=== PATIENT | male | born 1945 | race Caucasian/White ===

== ENCOUNTER 2017-09-15 15:15 | Inpatient (IN) | payer MEDICARE, OTHER ==
[2017-09-15] VITALS (7 sets, daily range): BP systolic 112–158; BP diastolic 67–81
[~2017-09-15] VITALS: Ht 193 cm; Wt 92.1 kg
--- NOTE | 2017-09-15 15:20 | NUR ---
PT TEMO FROM HOME FOR ABD PAIN. DENIES N/V/D. SEEN BY MD FOR EVAL. VSS. SAFETY AND COMFORT MEASURES PROVIDED. WILL MONITOR.
[2017-09-15] MEDS ORDERED: IV NS 0.9% 500 ML BAG IV ONE (15:30)
[2017-09-15 15:37] LABS: BASOPHILS # (AUTO) 0.7 /CMM (0.0-0.2); EOSINOPHILS # (AUTO) 0.2 /CMM (0.0-0.7); EOSINOPHILS % (AUTO) 0.9 % (0.0-6.0); HEMATOCRIT 38 % (39-51); HEMOGLOBIN 13.2 g/dL (13.5-17.5); LYMPHOCYTES # (AUTO) 0.6 /CMM (0.8-4.8); LYMPHOCYTES % (AUTO) 3.8 % (20.0-44.0); MEAN CORPUSCULAR HEMOGLOBIN 31 PG (26.0-33.0); MEAN CORPUSCULAR HGB CONC 34 g/dl (31.0-36.0); MEAN CORPUSCULAR VOLUME 91 fL (80-96); MONOCYTES # (AUTO) 1.1 /CMM (0.1-1.30); MONOCYTES % (AUTO) 6.3 % (2.0-12.0); NEUTROPHILS # (AUTO) 14.4 /CMM (1.8-8.9); PLATELET COUNT (AUTO) 276 /CMM (150-450); RDW COEFFICIENT OF VARIATION 13.7 (11.5-15.0); RED BLOOD CELL COUNT(AUTO) 4.21 MIL/uL (4.5-6.0)
--- NOTE | 2017-09-15 15:37 | NUR ---
PT TAKEN TO CT.
[2017-09-15 15:45] LABS: INR 3.38 (0.87-1.13); PROTHROMBIN TIME 35.1 SECS (9.5-12.7)
[2017-09-15 15:48] LABS: ALANINE AMINOTRANSFERASE 22 U/L (12-78); ALBUMIN 3.2 g/dL (3.4-5.0); ALKALINE PHOSPHATASE 82 U/L (46-116); ASPARTATE AMINOTRANSFERASE 17 U/L (15-37); BILIRUBIN,DIRECT 0.3 mg/dL (0.0-0.2); BILIRUBIN,TOTAL 1.8 mg/dL (0.2-1.0); CALCIUM, SERUM 8.5 mg/dL (8.5-10.1); CARBON DIOXIDE 23 mmol/L (21-32); CHLORIDE 102 mmol/L (98-107); CREATININE 1.6 mg/dL (0.6-1.3); GLUCOSE 258 mg/dL (74-106); LIPASE 94 U/L (73-393); POTASSIUM 4.3 mmol/L (3.5-5.1); SODIUM SERUM 136 mmol/L (136-145); TOTAL PROTEIN, SERUM 6.5 g/dL (6.4-8.2); UREA NITROGEN, BLOOD 37 mg/dL (7-18)
--- NOTE | 2017-09-15 16:04 | NUR ---
CALLED [facility], ETA OF 1800 WAS GIVEN. TRIP [phone]
[2017-09-15] MEDS ORDERED: TAMS-12 PO (16:09)
[2017-09-15] MEDS ORDERED: BUPR300T54 PO (16:09)
[2017-09-15] MEDS ORDERED: HYDR25TA4 PO (16:09)
[2017-09-15] MEDS ORDERED: BENA40TA2 PO (16:09)
[2017-09-15] MEDS ORDERED: TADA5TAB2 PO (16:09)
[2017-09-15] MEDS ORDERED: ATOR40TA PO (16:09)
[2017-09-15] MEDS ORDERED: WARF4TAB41 PO ×2 (16:09)
[2017-09-15] MEDS ORDERED: GLIP2.5T3 PO (16:09)
[2017-09-15] MEDS ORDERED: ZOLP5TAB7 PO (16:09)
--- NOTE | 2017-09-15 16:22 | NUR ---
CALLED DR PRUITT LEFT VOICEMAIL. [phone]
--- NOTE | 2017-09-15 16:28 | NUR ---
CALLED [employer] PRODUCTION ASSEMBLY OPERATOR WAS PAGED.
--- NOTE | 2017-09-15 16:42 | NUR ---
CALLED [facility] AUTOMATIC CIGAR WRAPPER TENDER WAS REPAGED.
[2017-09-15 16:45] LABS: NEUTROPHILS % (MANUAL) 88 (42-76)
[2017-09-15 16:46] LABS: LYMPHOCYTES % (MANUAL) 3 % (16-48); MONOCYTES % (MANUAL) 9 % (0-11.0)
--- NOTE | 2017-09-15 17:00 | NUR ---
CONSENT SIGNED BY PT FOR FFP TRANSFUSION. TEACHINGS PROVIDED. ALL QUESTIONS ANSWERED.
[2017-09-15] MEDS ORDERED: Z GUARD REMEDY 2 OZ OINT TP PRN (17:30)
[2017-09-15] MEDS ORDERED: HYDROCODONE/APAP 5/325MG 1 EACH TABLET PO PRN (17:30)
[2017-09-15] MEDS ORDERED: MAGNESIUM HYDROXIDE 30 ML UDC PO PRN (17:30)
[2017-09-15] MEDS ORDERED: MAG HYDROX/AL HYDROX/SIMETH 30 ML UDC PO PRN (17:30)
[2017-09-15] MEDS ORDERED: ONDANSETRON HCL/PF 4 MG/2 ML VIAL IVP PRN (17:30)
--- NOTE | 2017-09-15 17:52 | NUR ---
REPORT GIVEN TO LAMIN TRINIDAD FOR ICU ROOM 254.
--- NOTE | 2017-09-15 17:55 | NUR ---
FFP TRANSFUSION STARTED PER PROTOCOL. VSS. NO ADVERSE REACTION/ S/S NOTED. WILL CONTINUE TO MONITOR.
--- NOTE | 2017-09-15 18:25 | NUR ---
RN NOTES PT ARRIVED IN THE UNIT VIA GURNEY. ABLE TO TRANSFER FROM GURNEY TO BED WITH MODERATE ASSISTANCE. PT VERBALIZED LEFT AND RIGHT ABDOMINAL PAIN UPON MOVING. PT IS A/O X3. ON ROOM AIR, WITH NO S/S OF RESP DISTRESS. CURRENTLY SR ON THE MONITOR, HR 90'S. PT IS CONTINENT, ABLE TO USE URINAL, HEMATURIA NOTED, MD NOTIFIED. RIGHT FOREARM 18G HAS 4TH UNIT OF FFP CURRENTLY RUNNING, NO ADVERSE REACTIONS NOTED, IV LINE FLUSHED AND PATENT, NO S/S OF INFILTRATION/INFECTION FROM SITE, DRESSING CDI. BED LOW AND LOCKED, SIDERAILS UP, CALL LIGHT WITHIN REACH. WILL MONITOR.
[2017-09-15] MEDS ORDERED: DEXTROSE 50%-WATER 50 ML DISP.SYRIN IV PRN (19:30)
--- NOTE | 2017-09-15 19:30 | NUR ---
RN NOTES DR CORREA IN THE ROOM TO ASSESS THE PATIENT. MD AWARE OF HEMATURIA, NO NEW ORDERS FOR NOW.
[2017-09-15] MEDS: BLOOD SUGAR DIAGNOSTIC 1 EACH STRIP VI SCH (21:14)
[2017-09-15] MEDS: *INSULIN REGULAR(HUMULIN R)HUM 100 UNIT/ML VIAL SQ PRN (21:15)
[2017-09-15 22:43] LABS: HEMATOCRIT 29 % (39-51); HEMOGLOBIN 9.7 g/dL (13.5-17.5); MEAN CORPUSCULAR HEMOGLOBIN 31 PG (26.0-33.0); MEAN CORPUSCULAR HGB CONC 33 g/dl (31.0-36.0); MEAN CORPUSCULAR VOLUME 91 fL (80-96); PLATELET COUNT (AUTO) 234 /CMM (150-450); WHITE BLOOD COUNT (AUTO) 15.9 K/uL (4.3-11.0)
[2017-09-16] VITALS (25 sets, daily range): BP systolic 82–155; BP diastolic 50–89
[2017-09-16] MEDS: ZOLPIDEM TARTRATE 5 MG TABLET PO PRN ×2 (00:17→21:07)
[2017-09-16 05:11] LABS: HEMATOCRIT 28 % (39-51); HEMOGLOBIN 9.4 g/dL (13.5-17.5); LYMPHOCYTES # (AUTO) 1.2 /CMM (0.8-4.8); LYMPHOCYTES % (AUTO) 7.2 % (20.0-44.0); MEAN CORPUSCULAR HEMOGLOBIN 31 PG (26.0-33.0); MEAN CORPUSCULAR HGB CONC 34 g/dl (31.0-36.0); MEAN CORPUSCULAR VOLUME 92 fL (80-96); MONOCYTES # (AUTO) 1.9 /CMM (0.1-1.30); MONOCYTES % (AUTO) 11.6 % (2.0-12.0); NEUTROPHILS # (AUTO) 13.1 /CMM (1.8-8.9); NEUTROPHILS % (AUTO) 81.2 % (43.0-81.0); PLATELET COUNT (AUTO) 226 /CMM (150-450); RDW COEFFICIENT OF VARIATION 14.4 (11.5-15.0); RED BLOOD CELL COUNT(AUTO) 3.06 MIL/uL (4.5-6.0); WHITE BLOOD COUNT (AUTO) 16.1 K/uL (4.3-11.0)
[2017-09-16 05:30] LABS: CALCIUM, SERUM 8.3 mg/dL (8.5-10.1); CARBON DIOXIDE 25 mmol/L (21-32); CHLORIDE 106 mmol/L (98-107); CREATININE 1.7 mg/dL (0.6-1.3); GLUCOSE 177 mg/dL (74-106); POTASSIUM 4.1 mmol/L (3.5-5.1); SODIUM SERUM 142 mmol/L (136-145); UREA NITROGEN, BLOOD 45 mg/dL (7-18)
[2017-09-16 05:47] LABS: INR 1.64 (0.87-1.13); PROTHROMBIN TIME 17.1 SECS (9.5-12.7)
--- NOTE | 2017-09-16 06:15 | NUR ---
RN CLOSING NOTES PT REMAINS STABLE OF THE MOMENT. ALL DUE MEDS GIVEN, AM CARE PROVIDED. WILL ENDORSE CONTINUITY OF CARE TO AM RN
--- NOTE | 2017-09-16 07:30 | NUR ---
GENERAL DISTILLERY WORKER RECEIVED PATIENT ASLEEP, LYING ON BED EASY TO WAKE UP AFEBRILE ALERT X 3 NO COMPLAINTS OF PAIN AT THE MOMENT PLACED ON HIS COMFORTABLE POSITION HAS TEA COLORED URINE, ABLE TO USE URINAL MILD WEAKNES OF HIS LOWER EXTREMITIES
[2017-09-16] MEDS: BLOOD SUGAR DIAGNOSTIC 1 EACH STRIP VI SCH ×4 (07:39→21:06)
--- NOTE | 2017-09-16 08:00 | NUR ---
SLEEVE MAKER SEEN AND EXAMINED BY DR. CISSE WITH NEW ORDERS MADE AND CARRIED OUT MONITORED CLOSELY
[2017-09-16] MEDS: INSULIN REGULAR, HUMAN 100 UNIT/ML 3 ML VIAL SQ PRN ×3 (08:07→17:24)
[2017-09-16] MEDS ORDERED: IV NS 0.9% 1,000 ML IV SCH (09:00)
[2017-09-16] MEDS ORDERED: PANTOPRAZOLE 40 MG VIAL IV SCH (09:00)
[2017-09-16] MEDS: PANTOPRAZOLE 40 MG VIAL IV SCH ×2 (09:08→21:07)
[2017-09-16] MEDS: TAMSULOSIN 0.4 MG CAP.SR.24H PO SCH (09:08)
[2017-09-16] MEDS: BUPROPION XL 150 MG TAB.ER.24 PO SCH (09:08)
[2017-09-16 09:10] LABS: TROPONIN I 0.027 ng/mL (0.00-0.056)
[2017-09-16 09:43] LABS: THYROID STIMULATING HORMONE 0.264 uIU/mL (0.358-3.74)
[2017-09-16 09:47] LABS: BILIRUBIN,DIRECT 0.2 mg/dL (0.0-0.2); BILIRUBIN,TOTAL 1.6 mg/dL (0.2-1.0); TOTAL PROTEIN, SERUM 6.1 g/dL (6.4-8.2)
--- NOTE | 2017-09-16 10:00 | NUR ---
MACHINE FILLER SHREDDER SEEN AND EXAMINED BY DR. BOWLES AND DR. ROOT WITH NEW ORDERS MADE AND CARRIED OUT CREATININE IS ELEVATED INFORMED DR. CISSE ABOUT THE RESULT, PATIENT IS ON IV FLUID THERAPY WILL CONTINUE FLUID THERAPY SEE RESULT OF CREATININE, WILL PUSH THROUGH WITH THE PROCEDURE, DR. CISSE INFORMED RADIOLOGY DEPT
[2017-09-16] MEDS: IV D5/ 0.9% NACL 1,000 ML IV PRN ×3 (10:30→21:07)
[2017-09-16] MEDS ORDERED: CT SWABBABLE VALVE TRANS SET 1 EA INFUS.SET MC ONE (12:01)
[2017-09-16] MEDS ORDERED: IOHEXOL-350 100 ML VIAL IV ONE (12:01)
[2017-09-16] MEDS: PIPERACILLIN /TAZOBACTAM 3.375 G in IV D5W 50 ML IV SCH ×3 (12:40→23:13)
--- NOTE | 2017-09-16 12:40 | NUR ---
UROLOGIST MD CTA ABDOMEN AND PELVIS DONE AWAITING RESULT
[2017-09-16 15:11] LABS: APPEARANCE,URINE CLEAR (CLEAR); BILIRUBIN,URINE NEGATIVE (NEGATIVE); BLOOD, URINE 3+ Ery/uL (NEGATIVE); COLOR,URINE RED (YELLOW); KETONES,URINE NEGATIVE (NEGATIVE); LEUKOCYTE ESTERASE ,URINE TRACE (NEGATIVE); NITRITE, URINE POSITIVE (NEGATIVE); PROTEIN,URINE 2+ mg/dl (NEGATIVE); UGLUCOSE NEGATIVE (NEGATIVE); UROBILINOGEN,URINE 0.2 EU/dL (0.2)
[2017-09-16 15:41] LABS: CREATININE, URINE 99.9 MG/DL (30.0-125.0); URINE TOTAL PROTEIN 69.3 mg/dL (0-11.9)
[2017-09-16 15:54] LABS: BACTERIA,URINE 1+ /HPF (None Seen); RBC,URINE TOO NUMEROUS TO COUN /HPF (0-2); SQUAMOUS EPITHELIAL CELL,UR 0-2 /HPF (None Seen)
[2017-09-16 17:26] LABS: EOSINOPHIL,URINE None Seen
--- NOTE | 2017-09-16 18:36 | NUR ---
CLASSROOM INSTRUCTIONAL AIDE SEEN AND EXAMINED BY DR. BOWLES WITH NEW ORDERED MADE AND CARRIED OUT NO UNTOWARDS SYMPTOM SEEN ENDORSED TO NOD
--- NOTE | 2017-09-16 19:30 | NUR ---
RN INITIAL NOTES RECEIVED THE PATIENT AWAKE ON BED, A/OX 3. ON ROOM AIR SATURATING WELL, NO S/S OF RESP DISTRESS. CURRENTLY SR ON THE MONITOR, HR 80-90'S. DENIES ANY PAIN OF THE MOMENT. PT IS CONTINENT AND USES THE URINAL. RIGHT FOREARM 18G HAS D5NS@ 100MLS/HR, FLUSHED AND PATENT, NO S/S OF INFILTRATION/INFECTION, DRESSING CDI. BED LOW AND LOCKED, SIDERAILS UP, CALL LIGHT WITHIN REACH. WILL MONITOR
[2017-09-16 19:44] LABS: HEMATOCRIT 25 % (39-51); MEAN CORPUSCULAR HEMOGLOBIN 30 PG (26.0-33.0); MEAN CORPUSCULAR HGB CONC 33 g/dl (31.0-36.0); MEAN CORPUSCULAR VOLUME 93 fL (80-96); PLATELET COUNT (AUTO) 193 /CMM (150-450); RED BLOOD CELL COUNT(AUTO) 2.64 MIL/uL (4.5-6.0); WHITE BLOOD COUNT (AUTO) 13.6 K/uL (4.3-11.0)
[2017-09-16] MEDS: ACETAMINOPHEN 325 MG TABLET PO PRN (21:07)
[2017-09-16] MEDS: *INSULIN REGULAR(HUMULIN R)HUM 100 UNIT/ML VIAL SQ PRN (21:08)
[2017-09-17] VITALS (23 sets, daily range): BP systolic 96–156; BP diastolic 48–73
[2017-09-17 04:48] LABS: BASOPHILS % (AUTO) 0.2 % (0.0-2.0); EOSINOPHILS % (AUTO) 0.2 % (0.0-6.0); HEMATOCRIT 22 % (39-51); HEMOGLOBIN 7.2 g/dL (13.5-17.5); LYMPHOCYTES # (AUTO) 1.3 /CMM (0.8-4.8); MEAN CORPUSCULAR HEMOGLOBIN 30 PG (26.0-33.0); MEAN CORPUSCULAR HGB CONC 33 g/dl (31.0-36.0); MEAN CORPUSCULAR VOLUME 93 fL (80-96); MONOCYTES # (AUTO) 1.8 /CMM (0.1-1.30); MONOCYTES % (AUTO) 14.6 % (2.0-12.0); PLATELET COUNT (AUTO) 157 /CMM (150-450); RDW COEFFICIENT OF VARIATION 14.8 (11.5-15.0); RED BLOOD CELL COUNT(AUTO) 2.37 MIL/uL (4.5-6.0); WHITE BLOOD COUNT (AUTO) 12.2 K/uL (4.3-11.0)
[2017-09-17 05:06] LABS: ALANINE AMINOTRANSFERASE 19 U/L (12-78); ALBUMIN 2.5 g/dL (3.4-5.0); ALKALINE PHOSPHATASE 58 U/L (46-116); ASPARTATE AMINOTRANSFERASE 12 U/L (15-37); BILIRUBIN,TOTAL 1.5 mg/dL (0.2-1.0); CALCIUM, SERUM 8.1 mg/dL (8.5-10.1); CARBON DIOXIDE 27 mmol/L (21-32); CHLORIDE 108 mmol/L (98-107); CREATININE 1.5 mg/dL (0.6-1.3); GLUCOSE 146 mg/dL (74-106); POTASSIUM 3.7 mmol/L (3.5-5.1); SODIUM SERUM 144 mmol/L (136-145); TOTAL PROTEIN, SERUM 5.6 g/dL (6.4-8.2); UREA NITROGEN, BLOOD 42 mg/dL (7-18)
[2017-09-17] MEDS: IV D5/ 0.9% NACL 1,000 ML IV PRN (05:13)
[2017-09-17] MEDS: PIPERACILLIN /TAZOBACTAM 3.375 G in IV D5W 50 ML IV SCH ×4 (05:13→23:48)
--- NOTE | 2017-09-17 06:10 | NUR ---
RN NOTES NOTIFIED DR JEFFERY THAT PT HGB 7.2 AND HCT 22, NO ACTIVE BLEEDING, VITALS STABLE. PER MD, NO NEW ORDERS.
--- NOTE | 2017-09-17 06:30 | NUR ---
RN CLOSING NOTES PT REMAINS STABLE OF THE MOMENT. ALL DUE MEDS GIVEN, NEEDS MET. WILL ENDORSE CONTINUITY OF CARE TO AM RN
[2017-09-17] MEDS: BLOOD SUGAR DIAGNOSTIC 1 EACH STRIP VI SCH ×4 (07:23→21:01)
[2017-09-17] MEDS: INSULIN REGULAR, HUMAN 100 UNIT/ML 3 ML VIAL SQ PRN ×3 (07:26→21:03)
--- NOTE | 2017-09-17 07:30 | NUR ---
POTABLE WATER TREATMENT OPERATOR RECEIVED PATIENT AWAKE, LYING ON BED WITH ONGOING IVF NO COMPLAINTS AT THE MOMENT AFEBRILE ABLE TO MOVE ON BED WITH ASSIST VOIDNG FREELY USING URINAL MONITORED CLOSELY
[2017-09-17] MEDS: PANTOPRAZOLE 40 MG VIAL IV SCH ×2 (08:47→21:01)
[2017-09-17] MEDS: BUPROPION XL 150 MG TAB.ER.24 PO SCH (08:47)
[2017-09-17] MEDS: TAMSULOSIN 0.4 MG CAP.SR.24H PO SCH (08:47)
[2017-09-17] MEDS: ACETAMINOPHEN 325 MG TABLET PO PRN ×2 (08:48→13:15)
--- NOTE | 2017-09-17 10:41 | NUR ---
SEAM SEWER SEEN AND EXAMINED BY DR. CORREA AND DR. BOWLES WITH NEW ORDERS MADE AND CARRIED OUT
[2017-09-17 11:03] LABS: INR 1.57 (0.87-1.13); PROTHROMBIN TIME 16.4 SECS (9.5-12.7)
[2017-09-17] MEDS: SOD FERRIC GLUC 125 MG in IV NS 0.9% 100 ML IV SCH (13:36)
[2017-09-17] MEDS: ZOLPIDEM TARTRATE 5 MG TABLET PO PRN (21:01)
--- NOTE | 2017-09-17 21:30 | NUR ---
MEDTRONICS TECHNICIAN DF PT ACCU CHECK OF 152 PT COVERED WITH 2 UNITS REGULAR INSULIN SQ. PT REQUESTED AMBIEN 5MG PO C/O DIFFICULTY SLEEPING WHILE HOSPITALIZED. PT WITH TRANSFER ORDERS TO TELEMETRY UNIT. PT WILL BE TRANSFERRED TO ROOM#102. PT A/KEVIN4,VSS, NAD NOTED. PT ADMITTED ON 09/15 WITH EXTRAPERITONEAL HEMATOMA. PT DENIES PAIN TO SITE. PT STATE"IT,S GETTING MUCH BETTER AND HAS DECREASED IN SIZE" PT HAD 2 CT OF ABM/PELVIS, PT SEEN BY SURGICAL MD NO NEED FOR SURGICAL INTERVENTION AT THIS TIME. Addendum: 09/17/17 at 2232 by SOSA MCDONALD RN PT TRANSFERRED TO TELE ROOM 102. REPORT PROVIDED TO
--- NOTE | 2017-09-17 22:11 | NUR ---
TELE-1/FURNITURE DETAILER RECEIVED PT BY BED IN ROOM 102 ACCOMPANIED BY ICU STAFF. PT PLACED ON MONITOR. PT EDUCATED TO CALL LIGHT USE AND ROOM ORIENTATION. WILL CONTINUE TO MONITOR.
[2017-09-18] VITALS (18 sets, daily range): BP systolic 103–137; BP diastolic 56–68
[2017-09-18] MEDS: PIPERACILLIN /TAZOBACTAM 3.375 G in IV D5W 50 ML IV SCH ×4 (05:32→23:17)
[2017-09-18 06:33] LABS: BASOPHILS % (AUTO) 0.2 % (0.0-2.0); EOSINOPHILS # (AUTO) 0.1 /CMM (0.0-0.7); EOSINOPHILS % (AUTO) 0.9 % (0.0-6.0); HEMATOCRIT 22 % (39-51); HEMOGLOBIN 7.1 g/dL (13.5-17.5); LYMPHOCYTES # (AUTO) 1.4 /CMM (0.8-4.8); LYMPHOCYTES % (AUTO) 13.3 % (20.0-44.0); MEAN CORPUSCULAR HEMOGLOBIN 31 PG (26.0-33.0); MEAN CORPUSCULAR HGB CONC 33 g/dl (31.0-36.0); MEAN CORPUSCULAR VOLUME 93 fL (80-96); MONOCYTES # (AUTO) 1.3 /CMM (0.1-1.30); MONOCYTES % (AUTO) 12.7 % (2.0-12.0); NEUTROPHILS # (AUTO) 7.7 /CMM (1.8-8.9); NEUTROPHILS % (AUTO) 72.9 % (43.0-81.0); PLATELET COUNT (AUTO) 172 /CMM (150-450); RDW COEFFICIENT OF VARIATION 14.7 (11.5-15.0); RED BLOOD CELL COUNT(AUTO) 2.33 MIL/uL (4.5-6.0); WHITE BLOOD COUNT (AUTO) 10.6 K/uL (4.3-11.0)
[2017-09-18 06:48] LABS: INR 1.29 (0.87-1.13); PROTHROMBIN TIME 13.4 SECS (9.5-12.7)
[2017-09-18 06:59] LABS: ALANINE AMINOTRANSFERASE 19 U/L (12-78); ALBUMIN 2.3 g/dL (3.4-5.0); ALKALINE PHOSPHATASE 57 U/L (46-116); ASPARTATE AMINOTRANSFERASE 11 U/L (15-37); BILIRUBIN,TOTAL 1.5 mg/dL (0.2-1.0); CARBON DIOXIDE 28 mmol/L (21-32); CHLORIDE 110 mmol/L (98-107); CREATININE 1.2 mg/dL (0.6-1.3); GLUCOSE 127 mg/dL (74-106); MAGNESIUM 2.1 mg/dL (1.8-2.4); PHOSPHORUS 3.2 mg/dL (2.5-4.9); POTASSIUM 3.8 mmol/L (3.5-5.1); SODIUM SERUM 145 mmol/L (136-145); TOTAL PROTEIN, SERUM 5.6 g/dL (6.4-8.2); UREA NITROGEN, BLOOD 28 mg/dL (7-18)
--- NOTE | 2017-09-18 07:14 | NUR ---
RN NOTES RECEIVED PT FROM PLASTER FORM MAKER IN STABLE CONDITION A&0X3 ON ROOM AIR RESTING IN BED. SR ON THE TELE MONITOR HR 78. RAC 20G IV SITE DRY AND INTACT NO IVF. BED LOCKED AND IN LOWEST POSITION, CALL LIGHT WITHIN REACH, SIDE RAILS UPX3, WILL CONT TO MONITOR.
[2017-09-18] MEDS: TAMSULOSIN 0.4 MG CAP.SR.24H PO SCH (08:18)
[2017-09-18] MEDS: BLOOD SUGAR DIAGNOSTIC 1 EACH STRIP VI SCH ×4 (08:18→21:34)
[2017-09-18] MEDS: PANTOPRAZOLE 40 MG VIAL IV SCH ×2 (08:18→21:34)
[2017-09-18] MEDS: BUPROPION XL 150 MG TAB.ER.24 PO SCH (08:18)
[2017-09-18] MEDS: INSULIN REGULAR, HUMAN 100 UNIT/ML 3 ML VIAL SQ PRN ×3 (08:20→17:17)
[2017-09-18] MEDS: ACETAMINOPHEN 325 MG TABLET PO PRN ×2 (08:29→17:24)
[2017-09-18] MEDS ORDERED: ENOXAPARIN SODIUM 100 MG/ML DISP.SYRIN SQ SCH (10:00)
[2017-09-18 10:31] LABS: EOSINOPHILS # (AUTO) 0.2 /CMM (0.0-0.7); EOSINOPHILS % (AUTO) 2.3 % (0.0-6.0); HEMATOCRIT 21 % (39-51); LYMPHOCYTES # (AUTO) 1.6 /CMM (0.8-4.8); LYMPHOCYTES % (AUTO) 17.5 % (20.0-44.0); MEAN CORPUSCULAR HEMOGLOBIN 30 PG (26.0-33.0); MEAN CORPUSCULAR HGB CONC 33 g/dl (31.0-36.0); MEAN CORPUSCULAR VOLUME 93 fL (80-96); MONOCYTES # (AUTO) 0.9 /CMM (0.1-1.30); MONOCYTES % (AUTO) 9.7 % (2.0-12.0); NEUTROPHILS # (AUTO) 6.4 /CMM (1.8-8.9); NEUTROPHILS % (AUTO) 70.5 % (43.0-81.0); PLATELET COUNT (AUTO) 184 /CMM (150-450); RDW COEFFICIENT OF VARIATION 14.2 (11.5-15.0); RED BLOOD CELL COUNT(AUTO) 2.24 MIL/uL (4.5-6.0); WHITE BLOOD COUNT (AUTO) 9.1 K/uL (4.3-11.0)
[2017-09-18 10:39] LABS: HEMOGLOBIN 6.8 g/dL (13.5-17.5)
[2017-09-18 12:14] LABS: LYMPHOCYTES % (MANUAL) 13 % (16-48); NEUTROPHILS % (MANUAL) 78 (42-76)
[2017-09-18 12:15] LABS: REACTIVE LYMPHOCYTES 9 % (0-0)
[2017-09-18] MEDS: SOD FERRIC GLUC 125 MG in IV NS 0.9% 100 ML IV SCH (13:18)
[2017-09-18] MEDS ORDERED: WARFARIN SODIUM 5 MG TABLET PO SCH (17:00)
--- NOTE | 2017-09-18 18:23 | NUR ---
RN NOTES PT REMAINED IN STABLE CONDITION THROUGHOUT THE SHIFT, CURRENTLY TRANSFUSING 1 UNIT OF BLOOD, PT TOLERATING WELL NO DISTRESS OR FEVERS NOTED, VITALS REMAINED STABLE. MD RESTARTED ON COUMADIN AND LOVENOX, DR CORREA AWARE OF COAG LEVELS. ALL NEEDS MET, NO SIGNIFICANT CHANGES THROUGHOUT THE SHIFT. CALL LIGHT WITHIN REACH, SIDE RAILS UPX3, WILL ENDORSE TO ONCOMING SHIFT.
--- NOTE | 2017-09-18 19:30 | NUR ---
TEL RN INITIAL NOTES RECEIVED PT FROM DAY SHIFT, IN STABLE CONDITION. ONE UNIT OF BLOOD WAS TRANSFUSED, SECOND TO BE GIVE. NO SIGNS OF SOB OR DISTRESS. BREATHING EVENLY AND UNLABORED. DENIES PAIN. SR 78 ON MONITOR. IV ACCESS IS INTACT AND PATENT. BED IS IN LOW AND LOCKED POSITION, CALL LIGHT WITHIN REACH. WILL CONTINUE TO MONITOR PT
--- NOTE | 2017-09-18 19:50 | NUR ---
CLOTH GRADER SUPERVISOR NOTES PER PHYSICAL THERAPY, PT ONLY OUT OF BED WITH ASSISTANCE
[2017-09-18] MEDS: ENOXAPARIN SODIUM 100 MG/ML DISP.SYRIN SQ SCH (21:34)
[2017-09-18] MEDS: ZOLPIDEM TARTRATE 5 MG TABLET PO PRN (22:26)
[2017-09-19] VITALS: BP 118/59
[2017-09-19 04:00] VITALS: BP 121/56
[2017-09-19] MEDS: PIPERACILLIN /TAZOBACTAM 3.375 G in IV D5W 50 ML IV SCH (05:03)
[2017-09-19] MEDS: BLOOD SUGAR DIAGNOSTIC 1 EACH STRIP VI SCH ×4 (06:06→21:45)
--- NOTE | 2017-09-19 06:12 | NUR ---
PROVIDER NETWORK ANALYST NOTES \ NO INSULIN TO BE GIVEN. BS AT 133. PT STATED THAT HE IS NOT FEELING VERY HUNGRY AND DOESN'T BELIEVE HE WILL BE EATING MUCH BREAKFAST
--- NOTE | 2017-09-19 06:22 | NUR ---
MIDDLE SCHOOL HUMANITIES TEACHER CLOSING NOTES PT REMAINED STABLE THROUGHOUT THE SHIFT. NO SIGNS OF SOB OR DISTRESS. IV ACCESS INTACT AND PATENT. BED IS IN LOW AND LOCKED POSITION, CALL LIGHT WITHIN REACH. WILL ENDORSE TO DAYSHIFT
[2017-09-19 07:01] LABS: INR 1.13 (0.87-1.13); PROTHROMBIN TIME 11.8 SECS (9.5-12.7)
[2017-09-19 07:05] LABS: ALANINE AMINOTRANSFERASE 18 U/L (12-78); ALBUMIN 2.3 g/dL (3.4-5.0); ALKALINE PHOSPHATASE 54 U/L (46-116); ASPARTATE AMINOTRANSFERASE 15 U/L (15-37); BILIRUBIN,TOTAL 2.5 mg/dL (0.2-1.0); CALCIUM, SERUM 8.2 mg/dL (8.5-10.1); CARBON DIOXIDE 27 mmol/L (21-32); CHLORIDE 110 mmol/L (98-107); GLUCOSE 135 mg/dL (74-106); PHOSPHORUS 3.1 mg/dL (2.5-4.9); POTASSIUM 3.8 mmol/L (3.5-5.1); SODIUM SERUM 143 mmol/L (136-145); TOTAL PROTEIN, SERUM 5.6 g/dL (6.4-8.2); UREA NITROGEN, BLOOD 21 mg/dL (7-18)
--- NOTE | 2017-09-19 07:12 | NUR ---
RN NOTES RECEIVED PT FROM VENDING TECHNICIAN IN STABLE CONDITION RESTING IN BED. A&0X3, ON ROOM AIR NO SOB OR DISTRESS NOTED. SR ON THE TELE MONITOR HR 69.R HAND 20G IV SITE DRY AND INTACT NO IVF RUNNING. BED LOCKED AND IN LOWEST POSITION, CALL LIGHT WITHIN REACH, SIDE RAILS UPX3, WILL CONT TO MONITOR.
[2017-09-19 07:43] LABS: BASOPHILS % (AUTO) 0.2 % (0.0-2.0); EOSINOPHILS # (AUTO) 0.2 /CMM (0.0-0.7); EOSINOPHILS % (AUTO) 2.8 % (0.0-6.0); HEMATOCRIT 25 % (39-51); HEMOGLOBIN 8.5 g/dL (13.5-17.5); LYMPHOCYTES # (AUTO) 1.6 /CMM (0.8-4.8); LYMPHOCYTES % (AUTO) 18.3 % (20.0-44.0); MEAN CORPUSCULAR HEMOGLOBIN 31 PG (26.0-33.0); MEAN CORPUSCULAR HGB CONC 34 g/dl (31.0-36.0); MEAN CORPUSCULAR VOLUME 92 fL (80-96); MONOCYTES % (AUTO) 11.6 % (2.0-12.0); NEUTROPHILS % (AUTO) 67.1 % (43.0-81.0); PLATELET COUNT (AUTO) 200 /CMM (150-450); RDW COEFFICIENT OF VARIATION 14.2 (11.5-15.0); RED BLOOD CELL COUNT(AUTO) 2.73 MIL/uL (4.5-6.0); WHITE BLOOD COUNT (AUTO) 8.8 K/uL (4.3-11.0)
[2017-09-19 08:00] VITALS: BP 125/69
[2017-09-19] MEDS: PANTOPRAZOLE 40 MG VIAL IV SCH ×2 (08:12→21:45)
[2017-09-19] MEDS: BUPROPION XL 150 MG TAB.ER.24 PO SCH (08:12)
[2017-09-19] MEDS: TAMSULOSIN 0.4 MG CAP.SR.24H PO SCH (08:12)
[2017-09-19] MEDS: ENOXAPARIN SODIUM 100 MG/ML DISP.SYRIN SQ SCH ×2 (08:14→21:49)
[2017-09-19] MEDS: INSULIN REGULAR, HUMAN 100 UNIT/ML 3 ML VIAL SQ PRN ×2 (12:01→21:47)
[2017-09-19] MEDS: SOD FERRIC GLUC 125 MG in IV NS 0.9% 100 ML IV SCH (13:55)
[2017-09-19 16:00] VITALS: BP 131/59
[2017-09-19] MEDS: WARFARIN SODIUM 2 MG TABLET PO SCH (16:08)
--- NOTE | 2017-09-19 18:06 | NUR ---
RN NOTES PT REMAINED IN STABLE CONDITION THROUGHOUT THE SHIFT, PTS AT BEDSIDE. NO SIGNIFICANT CHANGES THROUGHOUT THE SHIFT. ALL NEEDS MET, NO COMPLAINTS OF PAIN. BED LOCKED AND IN LOWEST POSITION, CALL LIGHT WITHIN REACH WILL ENDORSE TO ONCOMING SHIFT.
[2017-09-19] MEDS: ACETAMINOPHEN 325 MG TABLET PO PRN (18:23)
--- NOTE | 2017-09-19 19:05 | NUR ---
RN OPENING NOTES PATIENT A/A/O X4, ABLE TO MAKE NEEDS KNOWN. BREATHING EVEN & UNLABORED, ON ROOM AIR. DENIES SOB OR DIFFICULTY BREATHING. PULSES PRESENT. RIGHT HAND IV #20 INTACT & PATENT W/ DRESSING CDI, SALINE LOCKED. DENIES ANY PAIN OR DISCOMFORT @ THIS TIME. SAFETY MEASURES IN PLACE W/ SIDE RAILS UP, BED LOCKED & IN LOWEST POSITION & CALL LIGHT WITHIN REACH. WILL CONTINUE TO MONITOR.
[2017-09-19 20:00] VITALS: BP 121/73
[2017-09-19] MEDS: ZOLPIDEM TARTRATE 5 MG TABLET PO PRN (21:49)
[2017-09-20 04:00] VITALS: BP_SYST 112; BP_SYST 142; BP_DIAS 80
[2017-09-20 06:48] LABS: BASOPHILS % (AUTO) 0.3 % (0.0-2.0); EOSINOPHILS # (AUTO) 0.2 /CMM (0.0-0.7); EOSINOPHILS % (AUTO) 2.2 % (0.0-6.0); HEMATOCRIT 27 % (39-51); HEMOGLOBIN 9.1 g/dL (13.5-17.5); LYMPHOCYTES # (AUTO) 1.4 /CMM (0.8-4.8); LYMPHOCYTES % (AUTO) 15.4 % (20.0-44.0); MEAN CORPUSCULAR HEMOGLOBIN 31 PG (26.0-33.0); MEAN CORPUSCULAR HGB CONC 34 g/dl (31.0-36.0); MEAN CORPUSCULAR VOLUME 92 fL (80-96); NEUTROPHILS # (AUTO) 6.3 /CMM (1.8-8.9); NEUTROPHILS % (AUTO) 71.1 % (43.0-81.0); PLATELET COUNT (AUTO) 238 /CMM (150-450); RDW COEFFICIENT OF VARIATION 14.4 (11.5-15.0); WHITE BLOOD COUNT (AUTO) 8.9 K/uL (4.3-11.0)
--- NOTE | 2017-09-20 07:05 | NUR ---
RN NOTES RECEIVED PT ON BED, A/Ox4, RESPIRATION EVEN AND UNLABORED, ON RA , KELLI ANY DISTRESS ,PULSES PRESENT. R HAND IV #20 SITE CDI, DENIES ANY PAIN OR DISCOMFORT @ THIS TIME. SR UP x3, CALL LIGHT WITHIN EASY REACH, SAFETY MEASURES IN PLACE, BED LOCKED & IN LOWEST POSITION ,WILL CONTINUE TO MONITOR CLOSELY.
[2017-09-20 08:00] VITALS: BP 136/78
[2017-09-20 08:04] LABS: INR 1.32 (0.87-1.13); PROTHROMBIN TIME 13.8 SECS (9.5-12.7)
[2017-09-20] MEDS: BLOOD SUGAR DIAGNOSTIC 1 EACH STRIP VI SCH ×4 (08:17→21:11)
[2017-09-20] MEDS: PANTOPRAZOLE 40 MG VIAL IV SCH ×2 (08:18→21:00)
[2017-09-20] MEDS: ENOXAPARIN SODIUM 100 MG/ML DISP.SYRIN SQ SCH ×2 (08:19→21:10)
[2017-09-20] MEDS: TAMSULOSIN 0.4 MG CAP.SR.24H PO SCH (08:19)
[2017-09-20] MEDS: BUPROPION XL 150 MG TAB.ER.24 PO SCH (08:19)
--- NOTE | 2017-09-20 11:00 | NUR ---
RN NOTES PT KELLI ANY DISTRESS , OOB TO BR , SUPPORTIVE FAMILY AT THE BEDSIDE, CONTINUE TO MONITOR.
[2017-09-20] MEDS: INSULIN REGULAR, HUMAN 100 UNIT/ML 3 ML VIAL SQ PRN (11:32)
[2017-09-20] MEDS: ACETAMINOPHEN 325 MG TABLET PO PRN ×2 (11:41→20:58)
[2017-09-20] MEDS: SOD FERRIC GLUC 125 MG in IV NS 0.9% 100 ML IV SCH (14:04)
[2017-09-20 16:00] VITALS: BP 142/74
[2017-09-20] MEDS: WARFARIN SODIUM 2 MG TABLET PO SCH (16:52)
--- NOTE | 2017-09-20 18:35 | NUR ---
RN NOTES PT RESTING WELL, RESPIRATION EVEN AND UNLABORED, NO DISTRESS NOTED, R HAND IV SITE CDI, WILL ENDORSE TO FOOD ORDER DELIVERY RUNNER NURSE FOR JONATHAN .
--- NOTE | 2017-09-20 19:55 | NUR ---
RN OPENING NOTES RECEIVED REPORT FROM DAYSHIFT RN. FOUND Pt RESTING IN BED, READY TO GO TO SLEEP. NO S/S OF ACUTE DISTRESS OR SOB NOTED. RESPIRATION EVEN AND UNLABORED. Pt IS A/OX4, VERBAL ABLE TO MAKE NEEDS KNOWN. IV ON RHAND #20G, SL. SAFETY MEASURES IN PLACE. BED LOW, LOCKED, HOB ELEVATED, SIDE RAILS UP, CALL LIGHT AND BEDSIDE TABLE WITHIN REACH. WILL CONTINUE TO MONITOR Pt THROUGHOUT THE NIGHT FOR SAFETY. PROBABLE DC IN THE AM WITH HOME HEALTH.
[2017-09-20 20:13] VITALS: BP 131/75
[2017-09-20] MEDS: ZOLPIDEM TARTRATE 5 MG TABLET PO PRN (21:11)
--- NOTE | 2017-09-20 22:00 | NUR ---
HS BLOOD GLUCOSE CHECK: 126. NO INSULIN COVERAGE NEEDED AT THIS TIME.
[2017-09-21 01:39] VITALS: BP 131/75
[2017-09-21 04:00] VITALS: BP 133/75
[2017-09-21 04:27] VITALS: BP 133/75
[2017-09-21 06:32] LABS: INR 1.81 (0.87-1.13); PROTHROMBIN TIME 18.9 SECS (9.5-12.7)
--- NOTE | 2017-09-21 06:35 | NUR ---
AC BLOOD GLUCOSE CHECK 124. NO INSULIN COVERAGE NEEDED AT THIS TIME.
[2017-09-21 06:36] LABS: BASOPHILS % (AUTO) 0.1 % (0.0-2.0); EOSINOPHILS # (AUTO) 0.1 /CMM (0.0-0.7); EOSINOPHILS % (AUTO) 1.3 % (0.0-6.0); HEMATOCRIT 29 % (39-51); HEMOGLOBIN 9.7 g/dL (13.5-17.5); LYMPHOCYTES # (AUTO) 1.1 /CMM (0.8-4.8); LYMPHOCYTES % (AUTO) 10.8 % (20.0-44.0); MEAN CORPUSCULAR HEMOGLOBIN 31 PG (26.0-33.0); MEAN CORPUSCULAR HGB CONC 34 g/dl (31.0-36.0); MEAN CORPUSCULAR VOLUME 93 fL (80-96); MONOCYTES # (AUTO) 1.1 /CMM (0.1-1.30); MONOCYTES % (AUTO) 11.1 % (2.0-12.0); NEUTROPHILS # (AUTO) 7.7 /CMM (1.8-8.9); NEUTROPHILS % (AUTO) 76.7 % (43.0-81.0); PLATELET COUNT (AUTO) 266 /CMM (150-450); RDW COEFFICIENT OF VARIATION 14.9 (11.5-15.0); RED BLOOD CELL COUNT(AUTO) 3.09 MIL/uL (4.5-6.0); WHITE BLOOD COUNT (AUTO) 10.1 K/uL (4.3-11.0)
--- NOTE | 2017-09-21 06:50 | NUR ---
RN CLOSING NOTES NO SIGNIFICANT CHANGES IN Pt's CONDITION. NO S/S OF ACUTE DISTRESS OR SOB NOTED DURING THE NIGHT. ALL NEEDS MET AND ATTENDED TO. SAFETY MEASURES IN PLACE. WILL ENDORSE TO DAYSHIFT RN FOR Pt's JONATHAN.
[2017-09-21] MEDS: BLOOD SUGAR DIAGNOSTIC 1 EACH STRIP VI SCH ×2 (06:58→12:00)
--- NOTE | 2017-09-21 07:12 | NUR ---
RN INITIAL NOTES: REC'D PT AWAKE ON BED, NOT IN ANY DISTRESS, A/O X4, DENIES ANY PAIN/DISCOMFORT AT THIS TIME. HAS R HAND G20 SL PATENT & INTACT W/ NO S/SX OF INFECTION/INFILTRATION NOTED. PROVIDED COMFORT & SAFETY MEASURES. BED KEPT LOW IN LOCKED POS. CALL LIGHT PLACED W/IN REACH. WILL CONTINUE TO MONITOR.
[2017-09-21 07:14] LABS: CALCIUM, SERUM 8.5 mg/dL (8.5-10.1); CARBON DIOXIDE 27 mmol/L (21-32); CHLORIDE 105 mmol/L (98-107); GLUCOSE 123 mg/dL (74-106); PHOSPHORUS 3.1 mg/dL (2.5-4.9); SODIUM SERUM 141 mmol/L (136-145); UREA NITROGEN, BLOOD 19 mg/dL (7-18)
[2017-09-21 08:00] VITALS: BP 138/71
[2017-09-21] MEDS: PANTOPRAZOLE 40 MG VIAL IV SCH (08:37)
[2017-09-21] MEDS: BUPROPION XL 150 MG TAB.ER.24 PO SCH (08:38)
[2017-09-21] MEDS: ENOXAPARIN SODIUM 100 MG/ML DISP.SYRIN SQ SCH (08:38)
[2017-09-21] MEDS: TAMSULOSIN 0.4 MG CAP.SR.24H PO SCH (08:38)
[2017-09-21] MEDS: INSULIN REGULAR, HUMAN 100 UNIT/ML 3 ML VIAL SQ PRN (12:08)
[2017-09-21] MEDS: ACETAMINOPHEN 325 MG TABLET PO PRN (13:44)
[2017-09-21] MEDS: SOD FERRIC GLUC 125 MG in IV NS 0.9% 100 ML IV SCH (14:58)
[2017-09-21 16:00] VITALS: BP 133/69
--- NOTE | 2017-09-21 16:48 | NUR ---
FACILITY MAINTENANCE WORKER NOTES: PT DC'D TO HOME W/ HOME HEALTH ORDERED. DC DOCUMENTS AND INSTRUCTIONS PROVIDED/EXPLAINED TO THE PT W/ AT BEDSIDE. ALL PAPERWORKS SIGNED BY PT. ALL BELONGINGS SENT W/ PT, PER NOTHING IS MISSING. IV ACCESS REMOVED, PRESSURE DRESSING APPLIED, NO INFECTION/BLEEDING NOTED. CONCERNED ABOUT WHAT TIME HOME HEALTH NURSE WILL VISIT, PER CM HH RN WILL BE IN PT'S HOUSE SHILOH AM. MADE AWARE. DM TEACHING WELL DM READING MATERIALS GIVEN TO THE PT. PER MD, SLIDING SCALE IS NOT NEEDED AFTER DC. MADE AWARE. PER CM, PER DR. LIGIA PITTMAN NOT NEEDED AFTER DC. SKIN IS INTACT. NO CONCERNS IDENTIFIED AT THIS TIME. PT LEFT FACILITY IN STABLE CONDITION VIA WHEELCHAIR ACCOMPANIED BY AND RN.
== END 2017-09-21 16:48 | disposition home or self-care (01) | DRG 393 ==
LOC: ER 15:18 → ICU 18:06 → TELE1 09-17 21:55 → MEDSG1 09-19 10:38
PROVIDERS: ADMIT Internal Medicine; ATTEND Internal Medicine
PROC: 30233K1 Transfusion of Nonautologous Frozen Plasma into Peripheral Vein, Percutaneous Approach (ICD-10-PCS; principal; 2017-09-15)
PROC: 30233N1 Transfusion of Nonautologous Red Blood Cells into Peripheral Vein, Percutaneous Approach (ICD-10-PCS; 2017-09-18)
DX: K66.1 Hemoperitoneum (principal); N17.0 Acute kidney failure with tubular necrosis; N39.0 Urinary tract infection, site not specified; E78.5 Hyperlipidemia, unspecified; F17.210 Nicotine dependence, cigarettes, uncomplicated; I12.9 Hypertensive chronic kidney disease with stage 1 through stage 4 chronic kidney disease, or unspecified chronic kidney disease; E11.22 Type 2 diabetes mellitus with diabetic chronic kidney disease; N18.9 Chronic kidney disease, unspecified; D72.829 Elevated white blood cell count, unspecified; R31.9 Hematuria, unspecified; Z95.2 Presence of prosthetic heart valve; E80.6 Other disorders of bilirubin metabolism; Z79.01 Long term (current) use of anticoagulants; N40.1 Benign prostatic hyperplasia with lower urinary tract symptoms
CPT/HCPCS: 36415; 71010-TC; 80048-TC; 80053-TC; 80061-TC; 80076-TC; 81000-TC; 82306; 82570-TC; 82728-TC; 82962-TC; 83540-TC; 83690-TC; 83735-TC; 84100-TC; 84155-TC; 84300-TC; 84439-TC; 84443-TC; 84484-TC; 85025-TC; 85027-TC; 85610-TC; 85730-TC; 86850-TC; 86921-TC; 87081-TC; 87086-TC; 93307-TC; 97116-TC; 97530-TC; A4606; C9113; J1650; J1815; J2543; J2916; J7030; J7040; J7042; J7050; J7060; P9016-BL; P9017-BL; Q9967; Z7610

== ENCOUNTER 2017-09-26 12:33 | Outpatient (CLI) | payer MEDICARE, OTHER ==
[~2017-09-26 12:33] MED LIST: ATOR40TA PO; BENA40TA2 PO; BUPR300T54 PO; GLIP2.5T3 PO; HYDR25TA4 PO; TADA5TAB2 PO; TAMS-12 PO; WARF4TAB41 PO; ZOLP5TAB8 PO
[2017-09-26 12:51] VITALS: BP 123/63
== END 2017-09-26 23:59 | disposition home or self-care (01) ==
LOC: MSC 12:33
PROVIDERS: ATTEND Internal Medicine
DX: S36.892A Contusion of other intra-abdominal organs, initial encounter (principal); I10 Essential (primary) hypertension; E11.9 Type 2 diabetes mellitus without complications; E78.5 Hyperlipidemia, unspecified; N40.0 Benign prostatic hyperplasia without lower urinary tract symptoms; F32.9 Major depressive disorder, single episode, unspecified; Z95.2 Presence of prosthetic heart valve; Z79.2 Long term (current) use of antibiotics; Z79.899 Other long term (current) drug therapy; W19.XXXA Unspecified fall, initial encounter; Y93.89 Activity, other specified; Y92.89 Other specified places as the place of occurrence of the external cause; Y99.8 Other external cause status

== ENCOUNTER 2017-10-29 06:37 | Inpatient (IN) | payer MEDICARE, OTHER ==
[2017-10-29] VITALS (11 sets, daily range): BP systolic 101–147; BP diastolic 48–76
[~2017-10-29] VITALS: Ht 193 cm; Wt 86.6 kg
--- NOTE | 2017-10-29 06:52 | NUR ---
PT TEMO FROM HOME WITH FAMILY PT C/O RIGHT HIP PAIN X 3 DAYS, PT DENIES ANY INJURY OR TRAUMA, PT STATES HE TOOK SOME NSAIDS AND HALF AN OXY AND PAIN IS NOT ANY BETTER, PT IS ABLE TO AMBULATE, PT ON MONITOR, IN GOWN, FAMILY AT BEDSIDE WILL CONTINUE TO MONITOR.
[2017-10-29 07:53] LABS: EOSINOPHILS # (AUTO) 0.1 /CMM (0.0-0.7); HEMATOCRIT 37 % (39-51); HEMOGLOBIN 12.5 g/dL (13.5-17.5); LYMPHOCYTES # (AUTO) 0.8 /CMM (0.8-4.8); LYMPHOCYTES % (AUTO) 8.9 % (20.0-44.0); MEAN CORPUSCULAR HEMOGLOBIN 31 PG (26.0-33.0); MEAN CORPUSCULAR HGB CONC 34 g/dl (31.0-36.0); MEAN CORPUSCULAR VOLUME 92 fL (80-96); MONOCYTES % (AUTO) 11.1 % (2.0-12.0); NEUTROPHILS # (AUTO) 7.3 /CMM (1.8-8.9); PLATELET COUNT (AUTO) 294 /CMM (150-450); RDW COEFFICIENT OF VARIATION 16.3 (11.5-15.0); WHITE BLOOD COUNT (AUTO) 9.3 K/uL (4.3-11.0)
[2017-10-29 08:02] LABS: CALCIUM, SERUM 8.4 mg/dL (8.5-10.1); CARBON DIOXIDE 26 mmol/L (21-32); CHLORIDE 107 mmol/L (98-107); GLUCOSE 219 mg/dL (74-106); POTASSIUM 3.5 mmol/L (3.5-5.1); SODIUM SERUM 141 mmol/L (136-145); UREA NITROGEN, BLOOD 17 mg/dL (7-18)
[2017-10-29 09:14] LABS: INR > 10.00 (0.87-1.13); PARTIAL THROMBOPLASTIN TIME 84 SEC (23-34)
[2017-10-29] MEDS ORDERED: HYDROCODONE/APAP 5/325MG 1 EACH TABLET PO ONE (09:30)
--- NOTE | 2017-10-29 09:46 | NUR ---
PT SENT TO XRAY WITH FAMILY
[2017-10-29] MEDS ORDERED: HYDROCODONE/APAP 5/325MG 1 EACH TABLET ONE (09:48)
--- NOTE | 2017-10-29 10:31 | NUR ---
PT IV STARTED RT FA 20G IV PATENT
[2017-10-29] MEDS ORDERED: PHYTONADIONE INJ 10 MG in IV D5W 50 ML IV ONE (11:30)
[2017-10-29] MEDS ORDERED: ONDANSETRON HCL/PF 4 MG/2 ML VIAL ONE (11:47)
[2017-10-29] MEDS ORDERED: MORPHINE SULFATE INJ 4 MG/ML DISP.SYRIN ONE (11:48)
[2017-10-29] MEDS ORDERED: ONDANSETRON HCL/PF 4 MG/2 ML VIAL IVP ONE (12:00)
[2017-10-29] MEDS ORDERED: MORPHINE SULFATE INJ 2 MG/ML DISP.SYRIN IV ONE (12:00)
[2017-10-29] MEDS ORDERED: Z GUARD REMEDY 2 OZ OINT TP PRN (13:00)
[2017-10-29] MEDS ORDERED: TADALAFIL 5 MG PO SCH (13:00)
[2017-10-29] MEDS ORDERED: MAG HYDROX/AL HYDROX/SIMETH 30 ML UDC PO PRN (13:00)
[2017-10-29] MEDS ORDERED: ZOLPIDEM TARTRATE 5 MG TABLET PO PRN (13:00)
[2017-10-29] MEDS ORDERED: ONDANSETRON HCL/PF 4 MG/2 ML VIAL IVP PRN (13:00)
[2017-10-29] MEDS ORDERED: MAGNESIUM HYDROXIDE 30 ML UDC PO PRN (13:00)
--- NOTE | 2017-10-29 13:00 | NUR ---
TELE/RN RECEIVED PATIENT RECEIVED THE PATIENT VIA [facility]. ALERT AND ORIENTED X4. RESPIRATION REGULAR AND UNLABORED. DENIES SOB, PAIN AT THIS TIME. NOTED RIGHT RIGHT WRIST G18 PATENT. TELE MONITOR PLACED. THE PATIENT IN NO APPARENT DISTRESS. SIDE RAIL UP X2. BED LOW AND LOCKED. CALL LIGHT WITHIN REACH. WILL CONTINUE TO MONITOR.
[2017-10-29] MEDS: HYDROCODONE/APAP 5/325MG 1 EACH TABLET PO PRN ×2 (14:50→19:37)
[2017-10-29] MEDS: ATORVASTATIN 40 MG TABLET PO SCH (15:04)
[2017-10-29] MEDS: TAMSULOSIN 0.4 MG CAP.SR.24H PO SCH (15:05)
[2017-10-29] MEDS: BUPROPION XL 150 MG TAB.ER.24 PO SCH (15:05)
[2017-10-29] MEDS: HYDROCHLOROTHIAZIDE 25 MG TABLET PO SCH (15:05)
--- NOTE | 2017-10-29 17:05 | NUR ---
TELE/RN NOTE PER DR ANAND PLASMA ORDER 4 BAGS. NOTED AND CARRIED OUT
[2017-10-29] MEDS: glipiZIDE XL 2.5 MG TAB.OSM.24 PO SCH (18:23)
--- NOTE | 2017-10-29 18:57 | NUR ---
TELE/RN CLOSING NOTE PATIENT IN BED AWAKE. ALERT AND ORIENTED X4. RESPIRATION REGULAR AND UNLABORED. NO C/O SOB, PAIN. IN NO APPARENT DISTRESS. RIGHT WRIST IV G18 PATENT AND PLASMA INFUSING WITH NO S/SX INFILTRATION. VITAL SIGNS STABLE. SIDE RAIL UP X2. BED LOW AND LOCKED. CALL LIGHT WITHIN REACH. WILL ENDORSE TO HUMAN RESOURCES ASSISTANT MANAGER.
--- NOTE | 2017-10-29 19:05 | NUR ---
RN INITIAL NOTES PATIENT IN BED, ALERT AND ORIENTED X 4, NOTED WITH NO SOB, BREATHING EVEN AND UNLABORED, IN NO ACUTE DISTRESS, CONTINUES TO RECEIVE PLASMA INFUSION VIA IV PERIPHERAL ON RIGHT WRIST G#18. ALL P[ATIENT'S NEEDS ATTENDED TO. WILL CONTINUE TO MONITOR UNDER TELE WITH SR @ 76 BPM WITH PVC.
--- NOTE | 2017-10-29 20:10 | NUR ---
RN NOTES PATIENT IN BED, 2ND PLASMA BAG TRANSFUSION COMPLETED, NOTED WITH NO SIGNS AND SYMPTOMS OF ACUTE DISTRESS, VITAL SIGNS STABLE. WILL CONTINUE TO MONITOR PT.
--- NOTE | 2017-10-29 21:39 | NUR ---
RN NOTES 3RD BAG OF PLASMA STARTED, PATIENT WITH STABLE VITAL SIGNS, WILL CONTINUE TO MONITOR.
[2017-10-29] MEDS: ZOLPIDEM TARTRATE 5 MG TABLET PO PRN (21:42)
--- NOTE | 2017-10-29 22:43 | NUR ---
RN NOTE 3RD BAG OF PLASMA DONE INFUSING, PATIENT IN NO ACUTE DISTRESS. WILL CONTINUE TO MONITOR.
--- NOTE | 2017-10-29 23:35 | NUR ---
RN NOTE 4TH BAG OF PLASMA STARTED, PATIENT ALERT AND ORIENTED X 4, IN NO ACUTE DISTRESS, NO SOB, AFEBRILE. WILL CONTINUE TO MONITOR.
[2017-10-30] VITALS (7 sets, daily range): BP systolic 134–157; BP diastolic 69–85
[2017-10-30] MEDS: HYDROCODONE/APAP 5/325MG 1 EACH TABLET PO PRN ×3 (00:19→20:21)
--- NOTE | 2017-10-30 00:26 | NUR ---
RN NOTE 4TH BAG OF PLASMA COMPLETED INFUSING, PATIENT IN NO ACUTE DISTRESS. WILL CONTINUE TO MONITOR.
--- NOTE | 2017-10-30 07:30 | NUR ---
RN CLOSING NOTES PATIENT IN BED, ALERT AND ORIENTED X 4, NO SOB, BREATHING EVEN AND UNLABORED, IN NO ACUTE DISTRESS, ALL PATIENT'S NEEDS ATTENDED TO, BED PLACED IN LOW POSITION. PATIENT UNDER TELE MONITORING WITH SR @ 83 BPM. WILL ENDORSE TO MORNING NURSE FOR CONTINUITY OF CARE.
--- NOTE | 2017-10-30 07:52 | NUR ---
TELE/RN OPENING NOTE PATIENT IN BED IN STABLE CONDITION. A/O X 4. NO SIGNS OF ACUTE DISTRESS. NO COMPLAIN OF PAIN OR DISCOMFORT. ON TELE MONITOR WITH SINUS RHYTHM OF MID 80'S. ALL NEEDS ATTENDED TO. CALL LIGHT WITHIN REACH. WILL CONTINUE TO MONITOR TO ENSURE SAFETY.
[2017-10-30 07:53] LABS: BASOPHILS % (AUTO) 0.3 % (0.0-2.0); EOSINOPHILS % (AUTO) 0.2 % (0.0-6.0); HEMATOCRIT 31 % (39-51); HEMOGLOBIN 10.7 g/dL (13.5-17.5); LYMPHOCYTES # (AUTO) 0.7 /CMM (0.8-4.8); LYMPHOCYTES % (AUTO) 7.9 % (20.0-44.0); MEAN CORPUSCULAR HEMOGLOBIN 32 PG (26.0-33.0); MEAN CORPUSCULAR HGB CONC 35 g/dl (31.0-36.0); MEAN CORPUSCULAR VOLUME 92 fL (80-96); MONOCYTES # (AUTO) 0.8 /CMM (0.1-1.30); MONOCYTES % (AUTO) 9.6 % (2.0-12.0); NEUTROPHILS # (AUTO) 7.1 /CMM (1.8-8.9); PLATELET COUNT (AUTO) 240 /CMM (150-450); RED BLOOD CELL COUNT(AUTO) 3.39 MIL/uL (4.5-6.0); WHITE BLOOD COUNT (AUTO) 8.7 K/uL (4.3-11.0)
[2017-10-30 08:35] LABS: CHOLESTEROL 142 mg/dL (<200); HDL CHOLESTEROL 46 mg/dL (40-60); LDL 85 mg/dL (0-99); TRIGLYCERIDES 77 mg/dL (30-150)
[2017-10-30 08:38] LABS: ALANINE AMINOTRANSFERASE 108 U/L (12-78); ALBUMIN 3.1 g/dL (3.4-5.0); ALKALINE PHOSPHATASE 144 U/L (46-116); ASPARTATE AMINOTRANSFERASE 66 U/L (15-37); BILIRUBIN,TOTAL 1.2 mg/dL (0.2-1.0); CALCIUM, SERUM 8.7 mg/dL (8.5-10.1); CARBON DIOXIDE 30 mmol/L (21-32); CHLORIDE 103 mmol/L (98-107); CREATININE 0.9 mg/dL (0.6-1.3); GLUCOSE 141 mg/dL (74-106); MAGNESIUM 1.7 mg/dL (1.8-2.4); PHOSPHORUS 3.1 mg/dL (2.5-4.9); POTASSIUM 3.2 mmol/L (3.5-5.1); SODIUM SERUM 140 mmol/L (136-145); TOTAL PROTEIN, SERUM 7.2 g/dL (6.4-8.2); UREA NITROGEN, BLOOD 15 mg/dL (7-18)
[2017-10-30 09:10] LABS: INR 2.67 (0.87-1.13)
[2017-10-30] MEDS: ATORVASTATIN 40 MG TABLET PO SCH (09:34)
[2017-10-30] MEDS: TAMSULOSIN 0.4 MG CAP.SR.24H PO SCH (09:34)
[2017-10-30] MEDS: BUPROPION XL 150 MG TAB.ER.24 PO SCH (09:34)
[2017-10-30] MEDS: glipiZIDE XL 2.5 MG TAB.OSM.24 PO SCH (09:35)
[2017-10-30] MEDS: HYDROCHLOROTHIAZIDE 25 MG TABLET PO SCH (09:35)
[2017-10-30] MEDS: VALSARTAN 80 MG TABLET PO SCH (09:35)
[2017-10-30] MEDS: MORPHINE SULFATE INJ 4 MG/ML DISP.SYRIN IV PRN ×4 (09:44→21:01)
[2017-10-30] MEDS: LIDOCAINE 5% (PATCH) 1 EA PATCH TP SCH (11:24)
[2017-10-30] MEDS: POTASSIUM CHLORIDE 20 MEQ TAB.PRT.SR PO SCH ×2 (13:37→15:30)
[2017-10-30] MEDS: Magnesium 1GM/D5W 100ML PREMIX 100 ML IV SCH ×2 (13:44→15:27)
--- NOTE | 2017-10-30 19:04 | NUR ---
MS/RN CLOSING NOTE PATIENT IN BED IN STABLE CONDITION. A/O X 3. NO SIGNS OF ACUTE DISTRESS. NO COMPLAIN OF PAIN OR DISCOMFORT. ALL NEEDS ATTENDED TO. CALL LIGHT WITHIN REACH. WILL ENDORSE TO NEXT SHIFT FOR CONTINUITY OF CARE.
--- NOTE | 2017-10-30 19:15 | NUR ---
RN OPENING NOTES RECEIVED PATIENT IN BED, ALERT AND ORIENTED X 4, IN NO ACUTE DISTRESS, VERBALLY RESPONSIVE. NO SOB NOTED, BREATHING EVEN AND UNLABORED. BED PLACED IN LOW POSITION, LOCKED IN PLACE. CALL LIGHT PLACED WITHIN EASY REACH. WILL CONTINUE TO MONITOR PT.
[2017-10-31] MEDS: MORPHINE SULFATE INJ 4 MG/ML DISP.SYRIN IV PRN ×5 (00:11→19:58)
[2017-10-31] MEDS: HYDROCODONE/APAP 5/325MG 1 EACH TABLET PO PRN ×3 (06:30→17:15)
--- NOTE | 2017-10-31 07:30 | NUR ---
RN CLOSING NOTES PATIENT IN BED, AWAKE, ALERT AND ORIENTED X4 , ABLE TO VERBALIZE NEEDS, IN NO ACUTE DISTRESS AT THIS TIME. ALL PATIENT'S NEEDS ATTENDED TO, ENCOURAGED TO REPOSITION TOLERATED ALL THROUGHOUT THE SHIFT. PATIENT'S CALL LIGHT PLACED WITHIN EASY REACH. WILL ENDORSE TO AM SHIFT NURSE FOR CONTINUITY OF CARE.
--- NOTE | 2017-10-31 07:45 | NUR ---
RN OPENING NOTES PT.'S FAMILY IS AT BEDSIDE. RECEIVED PT. IN BED A&OX4. BREATHING UNLABORED, AND EVENLY ON OXYGEN AT 3L/MIN. NO S/S OF ACUTE DISTRESS. IV ACCESS ON RIGHT WRIST INTACT AND PATENT. BED IS IN LOWEST, AND LOCKED POSITION. 2 SIDE RAILS UP, AND INSTRUCTED PT. TO USE CALL LIGHT FOR ASSISTANCE. ALL NEEDS MET. WILL CONTINUE TO ASSESS AND MONITOR.
[2017-10-31 08:00] VITALS: BP 156/76
[2017-10-31] MEDS: glipiZIDE XL 2.5 MG TAB.OSM.24 PO SCH (08:31)
[2017-10-31] MEDS: TAMSULOSIN 0.4 MG CAP.SR.24H PO SCH (08:31)
[2017-10-31] MEDS: ATORVASTATIN 40 MG TABLET PO SCH (08:32)
[2017-10-31] MEDS: VALSARTAN 80 MG TABLET PO SCH (08:32)
[2017-10-31] MEDS: LIDOCAINE 5% (PATCH) 1 EA PATCH TP SCH (08:33)
[2017-10-31] MEDS: HYDROCHLOROTHIAZIDE 25 MG TABLET PO SCH (08:33)
[2017-10-31 09:28] LABS: CALCIUM, SERUM 8.7 mg/dL (8.5-10.1); CARBON DIOXIDE 31 mmol/L (21-32); CHLORIDE 100 mmol/L (98-107); CREATININE 0.9 mg/dL (0.6-1.3); GLUCOSE 158 mg/dL (74-106); MAGNESIUM 2.1 mg/dL (1.8-2.4); POTASSIUM 3.6 mmol/L (3.5-5.1); SODIUM SERUM 137 mmol/L (136-145); UREA NITROGEN, BLOOD 19 mg/dL (7-18)
[2017-10-31 11:46] LABS: INR 3.19 (0.87-1.13)
[2017-10-31 16:00] VITALS: BP 123/76
--- NOTE | 2017-10-31 19:05 | NUR ---
RN CLOSING NOTES PT. IN BED A&OX4. BREATHING UNLABORED, AND EVENLY ON OXYGEN AT 2.5L/MIN. NO S/S OF ACUTE DISTRESS. IV ACCESS ON RIGHT WRIST INTACT AND PATENT. BED IS IN LOWEST, AND LOCKED POSITION. 2 SIDE RAILS UP, AND INSTRUCTED PT. TO USE CALL LIGHT FOR ASSISTANCE. ALL NEEDS MET. WILL ENDORSE REPORT TO NURSE. PER MD HOLD COUMADIN UNTIL NO EVIDENCE OF ACTIVE BLEEDING.
--- NOTE | 2017-10-31 19:23 | NUR ---
RN NOTES A/O X 4, PT IN STABLE CONDITION, NO S/S OF DISTRESS. SAFETY MEASURES ARE IN PLACE, CALL LIGHT IS IN REACH. WILL CONTINUE TO MONITOR.
[2017-10-31 20:00] VITALS: BP 141/85
[2017-10-31] MEDS: ZOLPIDEM TARTRATE 5 MG TABLET PO PRN (21:38)
--- NOTE | 2017-11-01 06:28 | NUR ---
MS RN CLOSING NOTES AWAKE IN BED, RESPIRATIONS EVEN AND UNLABORED. NOT IN S/S DISTRESS. TOLERATING ROOM AIR 96% STABLE CONDITION. KEPT CLEAN AND DRY AND COMFORTABLE, ALL NURSING CARE RENDERED. NEEDS ATTENDED AND ANTICIPATED, FREQUENT VISUAL CHECK DONE FOR SAFETY EVERY 2 HOURS. ON LOW BED AT ALL TIMES TO ENSURE SAFETY. SAFE HAZARD FREE ENVIRONMENT PROVIDED. CALL LIGHT WITHIN EASY TO REACH. WILL ENDORSE NEXT SHIFT CONTINUITY OF CARE.
--- NOTE | 2017-11-01 07:05 | NUR ---
MS TRINIDAD INITIAL NOTES Received patient in bed, asleep, head of bed elevated, no SOB or distress noted, on 02 @ 2lpm via NC with 02 saturation of 95%. IV intact with IVF infusing well. No facial grimace noted. Bilateral hand mittens in placed due to patient pulling her 02 out. Kept patient clean and comfortable in bed, call light with in patient reach, will continue to monitor accordingly. Addendum: 11/01/17 at 0724 by ERNA KIDD ammend: not on bilateral hand mittens.
[2017-11-01] MEDS: HYDROCODONE/APAP 5/325MG 1 EACH TABLET PO PRN ×4 (07:13→22:58)
[2017-11-01 08:00] VITALS: BP 127/74
[2017-11-01] MEDS: LIDOCAINE 5% (PATCH) 1 EA PATCH TP SCH (08:13)
[2017-11-01] MEDS: VALSARTAN 80 MG TABLET PO SCH (08:13)
[2017-11-01] MEDS: TAMSULOSIN 0.4 MG CAP.SR.24H PO SCH (08:13)
[2017-11-01] MEDS: ATORVASTATIN 40 MG TABLET PO SCH (08:14)
[2017-11-01] MEDS: HYDROCHLOROTHIAZIDE 25 MG TABLET PO SCH (08:14)
[2017-11-01] MEDS: glipiZIDE XL 2.5 MG TAB.OSM.24 PO SCH (08:17)
[2017-11-01 09:08] LABS: EOSINOPHILS # (AUTO) 0.1 /CMM (0.0-0.7); HEMATOCRIT 31 % (39-51); HEMOGLOBIN 10.6 g/dL (13.5-17.5); LYMPHOCYTES # (AUTO) 0.8 /CMM (0.8-4.8); LYMPHOCYTES % (AUTO) 7.3 % (20.0-44.0); MEAN CORPUSCULAR HEMOGLOBIN 31 PG (26.0-33.0); MEAN CORPUSCULAR HGB CONC 34 g/dl (31.0-36.0); MEAN CORPUSCULAR VOLUME 92 fL (80-96); MONOCYTES # (AUTO) 1.2 /CMM (0.1-1.30); MONOCYTES % (AUTO) 11.2 % (2.0-12.0); NEUTROPHILS # (AUTO) 8.4 /CMM (1.8-8.9); NEUTROPHILS % (AUTO) 80.5 % (43.0-81.0); PLATELET COUNT (AUTO) 257 /CMM (150-450); RDW COEFFICIENT OF VARIATION 15.6 (11.5-15.0); RED BLOOD CELL COUNT(AUTO) 3.37 MIL/uL (4.5-6.0); WHITE BLOOD COUNT (AUTO) 10.4 K/uL (4.3-11.0)
[2017-11-01 10:12] LABS: IRON, SERUM 25 ug/dl (50-175); TOTAL IRON BINDING CAPACITY 163 ug/dl (250-450)
[2017-11-01 10:22] LABS: INR 2.36 (0.87-1.13)
[2017-11-01 10:23] LABS: FERRITIN 647 ng/mL (8-388)
[2017-11-01] MEDS ORDERED: WARFARIN SODIUM 2 MG TABLET PO SCH (11:00)
[2017-11-01] MEDS: MORPHINE SULFATE INJ 4 MG/ML DISP.SYRIN IV PRN ×2 (11:04→13:54)
[2017-11-01] MEDS: Fluoxetine 10 mg capsule PO SCH (12:22)
[2017-11-01] MEDS: SOD FERRIC GLUC 125 MG in IV NS 0.9% 100 ML IV SCH (13:53)
--- NOTE | 2017-11-01 14:09 | NUR ---
MS RN NOTES Called Dr. Ball regarding patient radiology order and ordered CT of the right hip without contrast. All orders carried out and noted. Patient and made aware.
[2017-11-01 16:00] VITALS: BP 115/59
--- NOTE | 2017-11-01 19:12 | NUR ---
ms rn closing notes All needs provided, attended, and anticipated, kept patient clean and comfortable in bed, call light with in patient reach, endorsed to next shift RN to continue care.
--- NOTE | 2017-11-01 19:20 | NUR ---
RN NOTES A/O X 4, SITTING IN BED, PT IN STABLE CONDITION, NO S/S OF DISTRESS. SAFETY MEASURES ARE IN PLACE, CALL LIGHT IS IN REACH. WILL CONTINUE TO MONITOR.
[2017-11-01 20:00] VITALS: BP 119/55
[2017-11-01] MEDS: ZOLPIDEM TARTRATE 5 MG TABLET PO PRN (20:30)
[2017-11-02] MEDS: MORPHINE SULFATE INJ 4 MG/ML DISP.SYRIN IV PRN ×4 (00:52→17:37)
[2017-11-02] MEDS: HYDROCODONE/APAP 5/325MG 1 EACH TABLET PO PRN ×4 (04:57→18:58)
--- NOTE | 2017-11-02 06:32 | NUR ---
MS RN CLOSING NOTES ASLEEP AND EASILY AWAKEN, STABLE CONDITION. KEPT CLEAN AND DRY AND COMFORTABLE, ALL NURSING CARE RENDERED. NEEDS ATTENDED AND ANTICIPATED, FREQUENT VISUAL CHECK DONE FOR SAFETY EVERY 2 HOURS. ON LOW BED AT ALL TIMES TO ENSURE SAFETY. SAFE HAZARD FREE ENVIRONMENT PROVIDED. CALL LIGHT WITHIN EASY TO REACH. WILL ENDORSE NEXT SHIFT CONTINUITY OF CARE. ASSIST REPOSITION PT Q2H. TOLERATING ROOM AIR 97%
--- NOTE | 2017-11-02 08:00 | NUR ---
MS RN INITIAL NOTES Received patient in bed, asleep, head of bed elevated, no SOB or distress noted, on 02 @ 2lpm via NC with 02 saturation of 95%. No facial grimace noted. Kept patient clean and comfortable in bed, Pain mgt given as needed for rt hip pain.call light with in patient reach, will continue to monitor accordingly.
[2017-11-02 08:07] VITALS: BP_SYST 140; BP_SYST 157; BP_DIAS 75; BP_DIAS 92
[2017-11-02] MEDS: Fluoxetine 10 mg capsule PO SCH (09:00)
[2017-11-02] MEDS: TAMSULOSIN 0.4 MG CAP.SR.24H PO SCH (09:04)
[2017-11-02] MEDS: VALSARTAN 80 MG TABLET PO SCH (09:04)
[2017-11-02] MEDS: HYDROCHLOROTHIAZIDE 25 MG TABLET PO SCH (09:05)
[2017-11-02] MEDS: ATORVASTATIN 40 MG TABLET PO SCH (09:05)
[2017-11-02] MEDS: glipiZIDE XL 2.5 MG TAB.OSM.24 PO SCH (09:13)
[2017-11-02] MEDS: LIDOCAINE 5% (PATCH) 1 EA PATCH TP SCH (09:33)
[2017-11-02 11:20] LABS: INR 2.45 (0.87-1.13)
--- NOTE | 2017-11-02 13:25 | NUR ---
MS RN NOTES SEEN AND EVALUATED BY DR TEMPLETON MADE AWARE PATIENT REFUSED TO TAKE PROZAC TODAY DESPITE OF EXPLANATION OF RISK AND BENEFITS, NEW ORDER MADE TO GIVE 1 X DOSE OF PROZAC 10 MG TODAY. PATIENT AGREED TO TAKE MEDICATION PRESCRIBED. AT BEDSIDE. NOTED AND CARRIED OUT.
[2017-11-02] MEDS: SOD FERRIC GLUC 125 MG in IV NS 0.9% 100 ML IV SCH (14:17)
[2017-11-02 16:00] VITALS: BP 139/69
[2017-11-02] MEDS ORDERED: Fluoxetine 10 mg capsule PO ONE (16:00)
--- NOTE | 2017-11-02 18:00 | NUR ---
Pt resting in bed and pain mgt given for rt hip pain.Pt/family teaching given regarding the side effects and benefits of pain meds.Pt continues to ask for pain medicine round the clock inspite of giving non pharmacological methods/approach given.Pt's is always asking pain meds for her as well round the clock even if the pt is asleep.
--- NOTE | 2017-11-02 19:45 | NUR ---
MS RN OPENING NOTES Received patient in bed, awake, A & O x 4. head of bed elevated, no SOB or distress noted, on 02 @ 2lpm supplemental o2 via NC with 02 saturation of 96%. No facial grimace noted. Iv access to left FA, SL, intact patent. bed in low locked position. call light with in patient reach, will continue to monitor accordingly.
[2017-11-02 20:00] VITALS: BP 118/64
[2017-11-03] MEDS: MORPHINE SULFATE INJ 4 MG/ML DISP.SYRIN IV PRN ×2 (02:19→11:27)
--- NOTE | 2017-11-03 02:19 | NUR ---
PRN MORPHINE GIVEN PT C/O RIGHT HIP PAIN, PRN MORPHINE GIVEN ORDERED. WILL REASSESS FOR EFFECTIVENESS.
--- NOTE | 2017-11-03 06:43 | NUR ---
MS RN CLOSING NOTES Patient slept well @ night, A & O x 4. head of bed elevated, no SOB or distress noted, No facial grimace noted. No c/o pain, no acute distress noted. Iv access to right FA, SL, intact patent. Pain med given due to right hip area pain as ordered @ night. bed in low locked position. call light with in patient reach, will endorse to am RN for continuity of care.
[2017-11-03 08:00] VITALS: BP 140/61
--- NOTE | 2017-11-03 08:00 | NUR ---
RN OPENING NOTES RECEIVED PT. PT IS STABLE AND RESTING IN BED. NO S/S OF RESPIRATORY DISTRESS OR SOB. A/OX4. PT C/O PAIN IN RIGHT HIP AREA OF 05/02. IV ACCESS LOCATED ON RIGHT FA 22G SL. SAFETY MEASURES IN PLACE, CALL LIGHT WITHIN REACH. WILL CONTINUE TO MONITOR.
[2017-11-03] MEDS: TAMSULOSIN 0.4 MG CAP.SR.24H PO SCH (08:25)
[2017-11-03] MEDS: glipiZIDE XL 2.5 MG TAB.OSM.24 PO SCH (08:26)
[2017-11-03] MEDS: ATORVASTATIN 40 MG TABLET PO SCH (08:26)
[2017-11-03] MEDS: VALSARTAN 80 MG TABLET PO SCH (08:26)
[2017-11-03] MEDS: Fluoxetine 10 mg capsule PO SCH (08:26)
[2017-11-03] MEDS: LIDOCAINE 5% (PATCH) 1 EA PATCH TP SCH (08:30)
[2017-11-03] MEDS: HYDROCODONE/APAP 5/325MG 1 EACH TABLET PO PRN ×2 (08:40→13:39)
[2017-11-03] MEDS: HYDROCHLOROTHIAZIDE 25 MG TABLET PO SCH (08:41)
[2017-11-03 12:27] LABS: EOSINOPHILS % (AUTO) 0.4 % (0.0-6.0); HEMATOCRIT 32 % (39-51); HEMOGLOBIN 10.8 g/dL (13.5-17.5); LYMPHOCYTES # (AUTO) 0.8 /CMM (0.8-4.8); LYMPHOCYTES % (AUTO) 7.5 % (20.0-44.0); MEAN CORPUSCULAR HEMOGLOBIN 31 PG (26.0-33.0); MEAN CORPUSCULAR HGB CONC 34 g/dl (31.0-36.0); MEAN CORPUSCULAR VOLUME 92 fL (80-96); MONOCYTES # (AUTO) 1.2 /CMM (0.1-1.30); MONOCYTES % (AUTO) 11.7 % (2.0-12.0); NEUTROPHILS # (AUTO) 8.1 /CMM (1.8-8.9); NEUTROPHILS % (AUTO) 80.4 % (43.0-81.0); PLATELET COUNT (AUTO) 302 /CMM (150-450); RDW COEFFICIENT OF VARIATION 15.4 (11.5-15.0); RED BLOOD CELL COUNT(AUTO) 3.45 MIL/uL (4.5-6.0); WHITE BLOOD COUNT (AUTO) 10.1 K/uL (4.3-11.0)
[2017-11-03] MEDS: SOD FERRIC GLUC 125 MG in IV NS 0.9% 100 ML IV SCH (14:06)
[2017-11-03 16:08] VITALS: BP 107/57
--- NOTE | 2017-11-03 18:30 | NUR ---
RN CLOSING NOTES PT IN BED RESTING, DAUGHTER AT BEDSIDE. NO S/S OF RESP DISTRESS/SOB. NO C/O PAIN AT THIS TIME. PER MD ORDER, MONITOR PT/INR CLOSELY, HOLD COUMADIN, AND HEMATOLOGY TO F/U. SAFETY MEASURES IN PLACE, CALL LIGHT WITHIN REACH. WILL ENDORSE TO GEOLOGICAL AIDE FOR JONATHAN.
--- NOTE | 2017-11-03 19:30 | NUR ---
MS RN OPENING NOTES: RECEIVED PT IN BED. NO SOB NOTED. PT IS A/OX4. PT HAS IV ON R FOREARM #22G AND HAS BEEN FLUSHED. CURRENTLY S/L. NO S/S OF DISTRESS NOTED AT THIS TIME. CALL LIGHT WITHIN PT'S REACH. BED KEPT IN LOW, LOCKED POSITION, AND SIDE RAILS X 2UP. WILL CONTINUE TO MONITOR PT.
[2017-11-03 20:00] VITALS: BP 112/63
[2017-11-04 04:30] VITALS: BP 135/81
[2017-11-04] MEDS: MORPHINE SULFATE INJ 4 MG/ML DISP.SYRIN IV PRN ×2 (04:41→08:10)
[2017-11-04] MEDS: HYDROCODONE/APAP 5/325MG 1 EACH TABLET PO PRN ×2 (06:35→11:31)
[2017-11-04 06:57] LABS: EOSINOPHILS # (AUTO) 0.1 /CMM (0.0-0.7); EOSINOPHILS % (AUTO) 0.7 % (0.0-6.0); HEMATOCRIT 32 % (39-51); HEMOGLOBIN 10.8 g/dL (13.5-17.5); LYMPHOCYTES # (AUTO) 1.1 /CMM (0.8-4.8); LYMPHOCYTES % (AUTO) 10.5 % (20.0-44.0); MEAN CORPUSCULAR HEMOGLOBIN 32 PG (26.0-33.0); MEAN CORPUSCULAR HGB CONC 34 g/dl (31.0-36.0); MEAN CORPUSCULAR VOLUME 92 fL (80-96); MONOCYTES # (AUTO) 1.4 /CMM (0.1-1.30); MONOCYTES % (AUTO) 12.6 % (2.0-12.0); NEUTROPHILS # (AUTO) 8.3 /CMM (1.8-8.9); NEUTROPHILS % (AUTO) 76.2 % (43.0-81.0); PLATELET COUNT (AUTO) 316 /CMM (150-450); RDW COEFFICIENT OF VARIATION 15.4 (11.5-15.0); RED BLOOD CELL COUNT(AUTO) 3.43 MIL/uL (4.5-6.0); WHITE BLOOD COUNT (AUTO) 10.9 K/uL (4.3-11.0)
[2017-11-04 07:13] LABS: INR 2.07 (0.87-1.13)
--- NOTE | 2017-11-04 07:44 | NUR ---
MS RN CLOSING NOTES: ALL NEEDS WERE ATTENDED AND ANTICIPATED FOR. PT IS SITTING UP IN BED COMFORTABLY. NO SOB NOTED. PT IS A/OX4. PT HAS IV ON R FOREARM #22G AND HAS BEEN FLUSHED. CURRENTLY S/L. NO S/S OF DISTRESS NOTED AT THIS TIME. CALL LIGHT WITHIN PT'S REACH. BED KEPT IN LOW, LOCKED POSITION, AND SIDE RAILS X 2UP. ENDORSED TO AM NURSE FOR JONATHAN.
[2017-11-04 08:00] VITALS: BP 144/86
[2017-11-04] MEDS: ATORVASTATIN 40 MG TABLET PO SCH (08:10)
[2017-11-04] MEDS: TAMSULOSIN 0.4 MG CAP.SR.24H PO SCH (08:11)
[2017-11-04] MEDS: Fluoxetine 10 mg capsule PO SCH (08:11)
[2017-11-04] MEDS: VALSARTAN 80 MG TABLET PO SCH (08:15)
[2017-11-04] MEDS: HYDROCHLOROTHIAZIDE 25 MG TABLET PO SCH (08:21)
[2017-11-04] MEDS: LIDOCAINE 5% (PATCH) 1 EA PATCH TP SCH (08:21)
[2017-11-04] MEDS: glipiZIDE XL 2.5 MG TAB.OSM.24 PO SCH (10:16)
--- NOTE | 2017-11-04 12:16 | NUR ---
RN OPENING NOTES RECEIVED PT. PT IS STABLE AND RESTING IN BED. NO S/S OF RESPIRATORY DISTRESS OR SOB. A/OX4. PT C/O PAIN IN RIGHT HIP AREA OF 05/02. PT ASKS THAT HOSPITALIST CONTACT DR. KARIN MA FROM [facility] [phone] ACCESS LOCATED ON RIGHT FA 22G SL. SAFETY MEASURES IN PLACE, CALL LIGHT WITHIN REACH. WILL CONTINUE TO MONITOR. Addendum: 11/04/17 at 1219 by DMITRIY KIDD CORRECTION: PHONE NUMBER FOR DR. KARIN MARTIN IS
[2017-11-04] MEDS: HYDROMORPHONE 1 MG/1 ML DISP.SYRIN IV PRN ×2 (13:27→18:06)
[2017-11-04 16:00] VITALS: BP 129/68
[2017-11-04] MEDS: SOD FERRIC GLUC 125 MG in IV NS 0.9% 100 ML IV SCH (18:06)
--- NOTE | 2017-11-04 18:32 | NUR ---
RN CLOSING NOTES PT IN BED SLEEPING. NO S/S OF RESPIRATORY DISTRESS/SOB. PT HAS NO C/O PAIN AT THIS TIME. FERRLECIT ADMINISTERED AT 1800. PHARMACY CONTACTED AT 1400 AND AGAIN AT 1600 IN ORDER TO RECEIVE FERRLECIT. MEDICATION ARRIVED AT UNIT AT 1730. ALL PT NEEDS ANTICIPATED AND MET. BED LOWERED TO LOWEST POSITION. SAFETY MEASURES IN PLACE, CALL LIGHT WITHIN REACH. WILL ENDORSE TO ELECTRIC TRAIN DRIVER FOR JONATHAN.
--- NOTE | 2017-11-04 19:30 | NUR ---
MS RN OPENING NOTES: PATIENT IN BED, AOX4, ON ROOM AIR, BREATHING EVEN AND UNLABORED. APPEARS CALM AND IN NO DISTRESS, BUT DOES COMPLAIN OF PAIN OVER RIGHT UPPER LEG/ MEDIAL THIGH SCALED AT 4-5 /10 ONLY WHEN MOVING, AND ASKED WHEN NEXT PAIN MEDICATION IS DUE. EXPLAINED PAIN MEDICATION SCHEDULE, PATIENT VERBALIZED UNDERSTANDING. PIV OVER RFA G22 WITH SIGNS OF LEAKING. D'NISHA LINE AND WILL REINSERT NEW IV LINE. PROVIDED FOR COMFORT AND SAFETY. BED IN LOWEST AND LOCKED POSITION, SIDERAILS UP X 3. CALL LIGHT WITHIN REACH. WILL CONT TO MONITOR.
[2017-11-04 20:00] VITALS: BP 135/76
--- NOTE | 2017-11-04 20:30 | NUR ---
RN NOTES: NEW PIV LINE INSERTED OVER LFA G22, WITH GOOD BLOOD RETURN.
[2017-11-05] MEDS: HYDROMORPHONE 1 MG/1 ML DISP.SYRIN IV PRN ×4 (03:11→20:06)
--- NOTE | 2017-11-05 03:17 | NUR ---
RN NOTES: PATIENT COMPLAINED OF 8/10 PAIN OVER R UPPER THIGH. ADMINISTERED DILAUDID 1 MG IV PRN. WILL CONT TO MONITOR.
--- NOTE | 2017-11-05 06:57 | NUR ---
MS RN CLOSING NOTES: PATIENT IN BED, AOX4, ON ROOM AIR, BREATHING EVEN AND UNLABORED. APPEARS CALM AND IN NO DISTRESS. PIV OVER LFA G 22 INTACT AND PATENT TO FLUSH. NO SIGNS OF ACTIVE BLEEDING NOTED. PROVIDED FOR COMFORT AND SAFETY. BED IN LOWEST AND LOCKED POSITION, SIDERAILS UP X 3, CALL LIGHT WITHIN REACH. WILL ENDORSE TO AM RN FOR JONATHAN.
--- NOTE | 2017-11-05 07:53 | NUR ---
MS RN: INITIAL NOTE RECEIVED PT A/OX4. MS. USES URINAL. NO DISTRESS NOTED. NO SOB NOTED. NO PAIN NOTED. LFA #22 HL. SITE CLEAR AND PATENT. NO IV FLUIDS RUNNING. BRUISES ON L AHND AND R LEGS. RESTING COMFORTABLY IN BED. CALL LIGHT WITHIN REACH.
[2017-11-05 08:00] VITALS: BP 148/85
[2017-11-05] MEDS: HYDROCHLOROTHIAZIDE 25 MG TABLET PO SCH (08:10)
[2017-11-05] MEDS: ATORVASTATIN 40 MG TABLET PO SCH (08:10)
[2017-11-05] MEDS: glipiZIDE XL 2.5 MG TAB.OSM.24 PO SCH (08:10)
[2017-11-05] MEDS: Fluoxetine 10 mg capsule PO SCH (08:10)
[2017-11-05] MEDS: VALSARTAN 80 MG TABLET PO SCH (08:10)
[2017-11-05] MEDS: TAMSULOSIN 0.4 MG CAP.SR.24H PO SCH (08:10)
[2017-11-05] MEDS: LIDOCAINE 5% (PATCH) 1 EA PATCH TP SCH (08:35)
[2017-11-05] MEDS ORDERED: oxyCODONE IR immediate release 5 MG PO PRN (11:00)
[2017-11-05] MEDS ORDERED: Fluoxetine 10 mg capsule PO ONE (11:30)
[2017-11-05] MEDS: DRONABINOL (2.5 MG) 2.5 MG CAPSULE PO SCH ×2 (12:18→20:05)
[2017-11-05] MEDS: SOD FERRIC GLUC 125 MG in IV NS 0.9% 100 ML IV SCH (13:38)
[2017-11-05 16:00] VITALS: BP 141/78
[2017-11-05] MEDS: oxyCODONE IR immediate release 5 MG PO PRN ×2 (16:22→21:41)
--- NOTE | 2017-11-05 18:56 | NUR ---
MS RN: CLOSING NOTE PT A/OX4. TOOK ALL MEDICATIONS ON TIME. NO ADVERSE REACTIONS NOTED. ON ROOM AIR SATING AT 95%. USES URINAL. BEDREST. L HIP BRUISES NOTED. NO INCREASE IN BRUISING NOTED. ON REGULAR DIET. LFA #22 HL. NO IV FLUID RUNNING. NO DISTRESS NOTED. PAIN CONTROLLED WITH PAIN MEDICATIONS. RESTING COMFORTABLY IN BED. CALL LIGHT WITHIN REACH.
[2017-11-05 20:00] VITALS: BP 140/72
--- NOTE | 2017-11-05 20:10 | NUR ---
MS/RN OPENING NOTES PATIENT IN BED, ALERT, ORIENTEDX3, ABLE TO VERBALIZE NEEDPS REPORTED PAIN IN RIGHT HIP OF 7/10, BLOOD PRESSURE CHECK AT 140/71, SCHEDULED DILAUDID IVP AT 1MLGIVEN, WILL MONITOR PATIENT EFFECTIVENESS, REPORTED NO BOWEL FOR OVER 4 DAYS. WILL GIVE NEEDED MED FOR CONSTI[ATION.
[2017-11-05 20:35] VITALS: BP 140/72
--- NOTE | 2017-11-05 21:25 | NUR ---
MS/RN NOTES PATIENT AWAKEN FROM SLEEP AND REPORTED PAIN IN RIGHT HIP OF 8/10, WILL PROVIDE MEDICATION AND OFFERED WARM BLANKET FOR COMFORT.
--- NOTE | 2017-11-05 21:36 | NUR ---
MS/RN NOTES PATIENT OBSERVE SLEEPING AT THIS TIME, WILL MONITOR FOR PAIN MEDICATION. NO GRIMACE,
--- NOTE | 2017-11-05 21:41 | NUR ---
MS/RN NOTES PATIENT AWAKEN FROM SLEEP AND VERBALIZE PAIN IN RIGHT HIP AT 7/10 WILL PROVIDE MEDICATION AT THIS TIME.
--- NOTE | 2017-11-06 06:20 | NUR ---
323-1 MS/RN NOTES PATIENT IN BED, PAIN MANAGEMENT MONITOIRNG, MOM GIVEN PATIENT STATED NO BM FOR THE PAST 4DAYS, ABLE TO SLEEP DURING THE NIGHT, REPORT FEELING FIME. WARM BLANKET PROVIDED, BED IN LOCK POSITION, CALL LIHGTS WITHIN REACH, WILL CONTINUE TO MONITOR. PROVIDE FLUIDS, ABLE TO USE URINAL, NOT ABLE TO AMBULATE AT THIS TIME DUE TO RIGHT HIP PAIN, UNABLE TO BEAR WEIGHT, WILL ENDORSE TO AM RN FOR JONATHAN.
[2017-11-06 06:57] LABS: BASOPHILS % (AUTO) 0.2 % (0.0-2.0); EOSINOPHILS # (AUTO) 0.1 /CMM (0.0-0.7); EOSINOPHILS % (AUTO) 1.3 % (0.0-6.0); HEMATOCRIT 33 % (39-51); HEMOGLOBIN 11.1 g/dL (13.5-17.5); LYMPHOCYTES # (AUTO) 1.1 /CMM (0.8-4.8); MEAN CORPUSCULAR HEMOGLOBIN 32 PG (26.0-33.0); MEAN CORPUSCULAR HGB CONC 34 g/dl (31.0-36.0); MEAN CORPUSCULAR VOLUME 92 fL (80-96); MONOCYTES # (AUTO) 1.1 /CMM (0.1-1.30); MONOCYTES % (AUTO) 10.8 % (2.0-12.0); NEUTROPHILS % (AUTO) 76.7 % (43.0-81.0); PLATELET COUNT (AUTO) 328 /CMM (150-450); RED BLOOD CELL COUNT(AUTO) 3.54 MIL/uL (4.5-6.0); WHITE BLOOD COUNT (AUTO) 10.4 K/uL (4.3-11.0)
[2017-11-06 07:01] LABS: INR 1.57 (0.87-1.13)
[2017-11-06 07:13] LABS: CALCIUM, SERUM 9.1 mg/dL (8.5-10.1); CARBON DIOXIDE 30 mmol/L (21-32); CHLORIDE 102 mmol/L (98-107); CREATININE 0.9 mg/dL (0.6-1.3); GLUCOSE 153 mg/dL (74-106); POTASSIUM 3.4 mmol/L (3.5-5.1); SODIUM SERUM 140 mmol/L (136-145); UREA NITROGEN, BLOOD 21 mg/dL (7-18)
--- NOTE | 2017-11-06 07:44 | NUR ---
MS RN: INITIAL NOTE RECEIVED PT A/OX4. NO DISTRESS NOTED. NO SOB NOTED. PAIN CONTROLLED WITH PAIN MEDICATIONS. MS. BEDREST. AWAITING PT EVAL. R HIP BRUISE NOTED DUE TO HEMATOMA. REGULAR DIET. IV ON L FA #22 HL. NO IV FLUIDS RUNNING. SITE CLEAR AND PATENT. RESTING COMFORTABLY IN BED. CALL LIGHT WITHIN REACH.
[2017-11-06 08:00] VITALS: BP 143/63
[2017-11-06] MEDS: Fluoxetine 10 mg capsule PO SCH (08:35)
[2017-11-06] MEDS: glipiZIDE XL 2.5 MG TAB.OSM.24 PO SCH (08:35)
[2017-11-06] MEDS: LIDOCAINE 5% (PATCH) 1 EA PATCH TP SCH (08:35)
[2017-11-06] MEDS: ATORVASTATIN 40 MG TABLET PO SCH (08:35)
[2017-11-06] MEDS: HYDROCHLOROTHIAZIDE 25 MG TABLET PO SCH (08:35)
[2017-11-06] MEDS: VALSARTAN 80 MG TABLET PO SCH (08:35)
[2017-11-06] MEDS: TAMSULOSIN 0.4 MG CAP.SR.24H PO SCH (08:35)
[2017-11-06] MEDS: DRONABINOL (2.5 MG) 2.5 MG CAPSULE PO SCH ×2 (08:35→20:27)
[2017-11-06] MEDS: HYDROMORPHONE 1 MG/1 ML DISP.SYRIN IV PRN ×2 (09:25→20:14)
[2017-11-06] MEDS: ENOXAPARIN SODIUM 80 MG/0.8 ML DISP.SYRIN SQ SCH ×2 (09:27→20:28)
[2017-11-06] MEDS ORDERED: POTASSIUM CHLORIDE 20 MEQ TAB.PRT.SR PO ONE (09:30)
[2017-11-06] MEDS: oxyCODONE IR immediate release 5 MG PO PRN (15:16)
[2017-11-06 16:00] VITALS: BP 105/63
[2017-11-06] MEDS: WARFARIN SODIUM 2 MG TABLET PO SCH (16:32)
--- NOTE | 2017-11-06 18:32 | NUR ---
MS RN: CLOSING NOTE PT A/OX4. TOOK ALL MEDICATIONS ON TIME. NO ADVERSE REACTIONS NOTED. PAIN CONTROLLED WITH PAIN MEDICATIONS. NO DISTRESS. NO SOB NOTED. BSC IN PLACE. URINAL. ON REGULAR DIET. L FA #22HL. SITE CLEAR AND PATENT. RESTING COMFORTABLY IN BED. CALL LIGHT WITHIN REACH.
[2017-11-06 20:00] VITALS: BP 135/77
--- NOTE | 2017-11-06 20:15 | NUR ---
MS/RN OPENING NOTES PATIETN COMPLAINING OF PAIN IN RIGHT HIP, BLOOD PRESSURE CHECK AND COMFORT CARE PROVIDED, OFFERED FLUIDS, ADMINISTER MEDICATION AND MONITOR PAIN EFFECTIVENESS, INFORM TO CALL FOR ASSISTANCE FOR SAFETY.
--- NOTE | 2017-11-07 05:02 | NUR ---
MS/RN NOTES PATIENT AWAKEN FROM SLEEP AND VERBALIZED SEVERE PAIN IN RIGHT HIP, 06/02 WILL ADMINISTER MEDICATION FOR PAIN. BLOOD PRESSURE CHECK AT 142/73.
--- NOTE | 2017-11-07 06:48 | NUR ---
323-1 PATIETN ABLE TO SLEEP DURING THE NIGHT, REPORTED 8/10 PAIN IN RIGHT HIP, RESPIRATIONS EVEN AND UNLABORED, SKIN WARM TO TOUCH, INSTRUCTED TO USE CALL LIGHT FOR ASSISTANCE, JOHN ENDORSE TO AM RN FOR JONATHAN.
--- NOTE | 2017-11-07 07:10 | NUR ---
ms rn initial notes Received patient in bed, awake, head of bed elevated, no SOB or distress noted. On room air with 02 saturation of 97%. Verbalized pain of 3/10 pain scale. IV intact and patent HL only. Kept patient clean and comfortable in bed, call light with in patient reach. Will continue to monitor.
[2017-11-07 08:00] VITALS: BP 149/80
[2017-11-07] MEDS: ENOXAPARIN SODIUM 80 MG/0.8 ML DISP.SYRIN SQ SCH ×2 (08:43→21:03)
[2017-11-07] MEDS: HYDROCHLOROTHIAZIDE 25 MG TABLET PO SCH (08:44)
[2017-11-07] MEDS: DRONABINOL (2.5 MG) 2.5 MG CAPSULE PO SCH ×2 (08:44→20:56)
[2017-11-07] MEDS: TAMSULOSIN 0.4 MG CAP.SR.24H PO SCH (08:44)
[2017-11-07] MEDS: LIDOCAINE 5% (PATCH) 1 EA PATCH TP SCH (08:44)
[2017-11-07] MEDS: ATORVASTATIN 40 MG TABLET PO SCH (08:45)
[2017-11-07] MEDS: Fluoxetine 10 mg capsule PO SCH (08:45)
[2017-11-07] MEDS: glipiZIDE XL 2.5 MG TAB.OSM.24 PO SCH (08:49)
[2017-11-07] MEDS: VALSARTAN 80 MG TABLET PO SCH (08:52)
--- NOTE | 2017-11-07 09:24 | NUR ---
MS RN NOTES Dr. Perea came seen and examined the patient and ordered normal saline 1 bag bolus and hold blood pressure medications. All orders carried out and noted.
[2017-11-07] MEDS ORDERED: IV NS 0.9% 1,000 ML IV ONE (09:30)
[2017-11-07 09:51] LABS: BASOPHILS % (AUTO) 0.3 % (0.0-2.0); EOSINOPHILS # (AUTO) 0.1 /CMM (0.0-0.7); EOSINOPHILS % (AUTO) 1.5 % (0.0-6.0); HEMATOCRIT 34 % (39-51); HEMOGLOBIN 11.5 g/dL (13.5-17.5); LYMPHOCYTES # (AUTO) 1.2 /CMM (0.8-4.8); LYMPHOCYTES % (AUTO) 12.8 % (20.0-44.0); MEAN CORPUSCULAR HEMOGLOBIN 31 PG (26.0-33.0); MEAN CORPUSCULAR HGB CONC 34 g/dl (31.0-36.0); MEAN CORPUSCULAR VOLUME 92 fL (80-96); MONOCYTES # (AUTO) 1.1 /CMM (0.1-1.30); MONOCYTES % (AUTO) 11.7 % (2.0-12.0); NEUTROPHILS # (AUTO) 6.6 /CMM (1.8-8.9); NEUTROPHILS % (AUTO) 73.7 % (43.0-81.0); PLATELET COUNT (AUTO) 337 /CMM (150-450); RDW COEFFICIENT OF VARIATION 16.3 (11.5-15.0); RED BLOOD CELL COUNT(AUTO) 3.68 MIL/uL (4.5-6.0)
[2017-11-07] MEDS: oxyCODONE IR immediate release 5 MG PO PRN ×2 (09:56→18:39)
[2017-11-07] MEDS: ACETAMINOPHEN 325 MG TABLET PO PRN (12:44)
[2017-11-07] MEDS: HYDROMORPHONE 1 MG/1 ML DISP.SYRIN IV PRN (13:31)
[2017-11-07 16:00] VITALS: BP 121/60
[2017-11-07 16:47] LABS: INR 1.78 (0.87-1.13)
[2017-11-07] MEDS: WARFARIN SODIUM 2 MG TABLET PO SCH (17:10)
--- NOTE | 2017-11-07 17:10 | NUR ---
ms rn notes INR level 1.78. coumadin 7mg given.
--- NOTE | 2017-11-07 19:12 | NUR ---
ms rn closing notes All needs provided, attended, and anticipated. kept patient clean and comfortable in bed, call light with in patient reach, endorsed to next shift RN to continue care.
--- NOTE | 2017-11-07 19:15 | NUR ---
RN OPENING NOTES RECEIVED PT IN BED, ALERT AND ORIENTED X 3, ABLE TO MAKE NEEDS KNOWN, VERBALLY RESPONSIVE, NO SOB NOTED, BREATHING EVEN AND UNLABORED, WITH NO C/O PAIN AT THIS TIME AND IN NO ACUTE DISTRESS. ENCOURAGED PATIENT TO TURN AND REPOSITION OFTEN HE COULD, PATIENT VERBALIZED UNDERSTANDING. CALL LIGHT PLACED WITHIN EASY REACH, WILL CONTINUE TO MONITOR PT.
[2017-11-07 20:00] VITALS: BP 146/68
[2017-11-07] MEDS: ZOLPIDEM TARTRATE 5 MG TABLET PO PRN (20:57)
--- NOTE | 2017-11-07 21:00 | NUR ---
RN NOTE PATIENT VERBALIZED THAT HE WOULD LIKE TO HAVE SOMETHING TO HELP HIM SLEEP. AMBIEN 5MG 1 TAB PO GIVEN. WILL CONTINUE TO MONITOR.
[2017-11-08] MEDS: HYDROMORPHONE 1 MG/1 ML DISP.SYRIN IV PRN ×2 (02:36→09:45)
--- NOTE | 2017-11-08 06:22 | NUR ---
RN CLOSING NOTES PATIENT IN BED, ALERT AND ORIENTED X 4, COMFORTABLE, ASLEEP BUT EASILY AWOKEN. NOTED WITH NO C/O PAIN AT THIS TIME, NO SOB, BREATHING EVEN AND UNLABORED AND IS IN NO ACUTE DISTRESS. ALL PATIENT'S NEEDS ATTENDED TO AT THIS TIME. CALL LIGHT PLACED WITHIN EASY REACH. BED PLACED IN LOW POSITION AND LOCKED IN PLACE.
[2017-11-08 08:00] VITALS: BP 158/69
--- NOTE | 2017-11-08 08:15 | NUR ---
MS RN: OPENING NOTE RECEIVED PT A/OX4. MS. NO DISTRESS NOTED. NO SOB NOTED. PAIN CONTROLLED WITH PAIN MEDICATIONS. USES URINAL AND DIAPER. BEDREST. ON REGULAR DIET. L FA #22 HL. NO IV FLUIDS RUNNING. AWAITING PLACEMENT FOR D/C. RESTING COMFORTABLY IN BED. CALL LIGHT WITHIN REACH.
[2017-11-08] MEDS: TAMSULOSIN 0.4 MG CAP.SR.24H PO SCH (08:35)
[2017-11-08] MEDS: Fluoxetine 10 mg capsule PO SCH (08:35)
[2017-11-08] MEDS: glipiZIDE XL 2.5 MG TAB.OSM.24 PO SCH (08:35)
[2017-11-08] MEDS: VALSARTAN 80 MG TABLET PO SCH (08:36)
[2017-11-08] MEDS: LIDOCAINE 5% (PATCH) 1 EA PATCH TP SCH (08:36)
[2017-11-08] MEDS: HYDROCHLOROTHIAZIDE 25 MG TABLET PO SCH (08:36)
[2017-11-08] MEDS: DRONABINOL (2.5 MG) 2.5 MG CAPSULE PO SCH (08:36)
[2017-11-08] MEDS: ATORVASTATIN 40 MG TABLET PO SCH (08:36)
[2017-11-08] MEDS: ENOXAPARIN SODIUM 80 MG/0.8 ML DISP.SYRIN SQ SCH (08:38)
[2017-11-08 12:00] VITALS: BP 142/56
[2017-11-08 12:38] LABS: INR 2.18 (0.87-1.13)
[2017-11-08] MEDS: ACETAMINOPHEN 325 MG TABLET PO PRN (13:05)
--- NOTE | 2017-11-08 13:09 | NUR ---
MS RN: DISCHARGE NOTE PT D/C TO [facility] FOR REHAB AND CONTINUE CARE. A/OX3-4. FAMILY AT BEDSIDE. NO DISTRESS NOTED. NO SOB NOTED. PAIN CONTROLLED WITH PAIN MEDICATIONS. TOOK ALL MORNING MEDICATIONS ON TIME. NO ADVERSE REACTIONS NOTED. AMBULATORY WITH WALKER/ ASSIST. ON REGULAR DIET. SKIN INTACT. L HAND BRUISE PICTURE TAKEN AND PLACED IN CHART. L FA #22 IV HL REMOVED. SITE CLEAR. NO BLEEDING NOTED. INR DAILY DONE. PLACED ON REPORT SENT TO [facility]. REPORT GIVEN TO SANDRO TRINIDAD. ALL DISCHARGE PAPERWORK SIGNED BY PT. ALL BELONGINGS ACCOUNTED FOR. COPIES PROVIDED TO [facility]. LEFT VIA AMBULANCE WITH TWO EMT. VITAL SIGNS STABLE. 133/65, PULSE 75, O2 97%, RR18, TEMP 97.5.
[2017-11-08] MEDS ORDERED: ENOXAPARIN SODIUM 80 MG/0.8 ML DISP.SYRIN SQ SCH (21:00)
== END 2017-11-08 13:10 | DRG 393 ==
LOC: ER 06:38 → MEDSG2 10:27 → TELE 12:39 → MED 10-30 10:04
PROVIDERS: ADMIT Internal Medicine; ATTEND Internal Medicine
PROC: 30233K1 Transfusion of Nonautologous Frozen Plasma into Peripheral Vein, Percutaneous Approach (ICD-10-PCS; principal; 2017-10-29)
DX: K66.1 Hemoperitoneum (principal); G93.41 Metabolic encephalopathy; E11.9 Type 2 diabetes mellitus without complications; I11.0 Hypertensive heart disease with heart failure; I50.9 Heart failure, unspecified; T45.515A Adverse effect of anticoagulants, initial encounter; E78.5 Hyperlipidemia, unspecified; Y92.89 Other specified places as the place of occurrence of the external cause; Z95.2 Presence of prosthetic heart valve; Z86.73 Personal history of transient ischemic attack (TIA), and cerebral infarction without residual deficits; I25.10 Atherosclerotic heart disease of native coronary artery without angina pectoris; F32.9 Major depressive disorder, single episode, unspecified; N40.0 Benign prostatic hyperplasia without lower urinary tract symptoms; Z85.05 Personal history of malignant neoplasm of liver; Z79.899 Other long term (current) drug therapy; Z79.01 Long term (current) use of anticoagulants; Z74.01 Bed confinement status; F41.9 Anxiety disorder, unspecified; Z88.1 Allergy status to other antibiotic agents; Z98.890 Other specified postprocedural states; I35.0 Nonrheumatic aortic (valve) stenosis; Z79.84 Long term (current) use of oral hypoglycemic drugs; Y92.129 Unspecified place in nursing home as the place of occurrence of the external cause; R79.1 Abnormal coagulation profile; R61 Generalized hyperhidrosis; Z87.891 Personal history of nicotine dependence; G47.00 Insomnia, unspecified; S70.11XA Contusion of right thigh, initial encounter; X58.XXXA Exposure to other specified factors, initial encounter; Y92.9 Unspecified place or not applicable
CPT/HCPCS: 36415; 71045-TC; 72192-TC; 73502; 76882; 80048-TC; 80053-TC; 80061-TC; 82728-TC; 83540-TC; 83735-TC; 84100-TC; 85025-TC; 85610-TC; 85730-TC; 86850-TC; 87081-TC; 97110-TC; 97116-TC; 97530-TC; A4606; J1170; J1650; J2270; J2405; J2916; J3430; J3475; J7030; J7050; J7060; P9017-BL; Q0167; Z7610

== ENCOUNTER 2018-06-23 14:36 | Inpatient (IN) | payer MEDICARE, OTHER ==
[~2018-06-23] VITALS: Ht 193 cm; Wt 84.1 kg
[~2018-06-23 14:36] MED LIST changes: -BENA40TA2 PO; +BENA40TA8 PO
[2018-06-23 15:27] LABS: BASOPHILS # (AUTO) 0.4 /CMM (0.0-0.2); BASOPHILS % (AUTO) 2.7 % (0.0-2.0); EOSINOPHILS % (AUTO) 0.4 % (0.0-6.0); HEMATOCRIT 55 % (39-51); HEMOGLOBIN 17.6 g/dL (13.5-17.5); LYMPHOCYTES # (AUTO) 0.9 /CMM (0.8-4.8); LYMPHOCYTES % (AUTO) 6.6 % (20.0-44.0); MEAN CORPUSCULAR HEMOGLOBIN 30 PG (26.0-33.0); MEAN CORPUSCULAR HGB CONC 32 g/dl (31.0-36.0); MEAN CORPUSCULAR VOLUME 93 fL (80-96); MONOCYTES # (AUTO) 0.9 /CMM (0.1-1.30); MONOCYTES % (AUTO) 6.7 % (2.0-12.0); NEUTROPHILS # (AUTO) 11.8 /CMM (1.8-8.9); NEUTROPHILS % (AUTO) 83.6 % (43.0-81.0); PLATELET COUNT (AUTO) 215 /CMM (150-450); RDW COEFFICIENT OF VARIATION 14.3 (11.5-15.0); RED BLOOD CELL COUNT(AUTO) 5.86 MIL/uL (4.5-6.0); WHITE BLOOD COUNT (AUTO) 14.1 K/uL (4.3-11.0)
[2018-06-23] MEDS ORDERED: MULT-447 PO (15:31)
[2018-06-23] MEDS ORDERED: AMLO2.5T PO (15:31)
[2018-06-23] MEDS ORDERED: FURO40TA5 PO (15:31)
[2018-06-23] MEDS ORDERED: POTA20TA83 PO (15:31)
[2018-06-23 15:39] LABS: CALCIUM, SERUM 9.1 mg/dL (8.5-10.1); CARBON DIOXIDE 31 mmol/L (21-32); CHLORIDE 103 mmol/L (98-107); CREATININE 1.2 mg/dL (0.6-1.3); GLUCOSE 154 mg/dL (74-106); POTASSIUM 3.7 mmol/L (3.5-5.1); SODIUM SERUM 141 mmol/L (136-145); UREA NITROGEN, BLOOD 20 mg/dL (7-18)
[2018-06-23 15:52] LABS: INR 4.11 (0.85-1.15)
[2018-06-23 15:53] LABS: TROPONIN I < 0.017 ng/mL (0.00-0.056)
[2018-06-23 15:54] LABS: ALANINE AMINOTRANSFERASE 28 U/L (12-78); ALBUMIN 3.8 g/dL (3.4-5.0); ALKALINE PHOSPHATASE 93 U/L (46-116); ASPARTATE AMINOTRANSFERASE 20 U/L (15-37); B-TYPE NATRIURETIC PEPTIDE 1869 PG/ML (0-125); BILIRUBIN,DIRECT 0.4 mg/dL (0.0-0.2); BILIRUBIN,TOTAL 2.2 mg/dL (0.2-1.0); TOTAL PROTEIN, SERUM 7.6 g/dL (6.4-8.2)
[2018-06-23 16:17] LABS: LYMPHOCYTES % (MANUAL) 8 % (16-48); NEUTROPHILS % (MANUAL) 84 (42-76); REACTIVE LYMPHOCYTES 8 % (0-0)
[2018-06-23] MEDS ORDERED: FUROSEMIDE 40 MG/4 ML VIAL ONE (16:17)
[2018-06-23] MEDS ORDERED: AZITHROMYCIN 500 MG in IV D5W 250 ML IV ONE (16:30)
[2018-06-23] MEDS ORDERED: CEFTRIAXONE 1 G in IV D5W 50 ML IV ONE (16:30)
[2018-06-23] MEDS ORDERED: FUROSEMIDE 40 MG/4 ML VIAL IV ONE (16:30)
[2018-06-23 17:30] VITALS: BP 149/84
[2018-06-23] MEDS ORDERED: HYDROCODONE/APAP 5/325MG 1 EACH TABLET PO PRN (18:00)
[2018-06-23] MEDS ORDERED: Z GUARD REMEDY 2 OZ OINT TP PRN (18:00)
[2018-06-23] MEDS ORDERED: ALBUTEROL FS 2.5 MG/3 ML VIAL.NEB NEB PRN (18:00)
[2018-06-23] MEDS ORDERED: TEMAZEPAM 15 MG CAPSULE PO PRN (18:00)
[2018-06-23] MEDS ORDERED: ACETAMINOPHEN 325 MG TABLET PO PRN (18:00)
[2018-06-23] MEDS ORDERED: ONDANSETRON HCL/PF 4 MG/2 ML VIAL IVP PRN (18:00)
[2018-06-23] MEDS ORDERED: MAG HYDROX/AL HYDROX/SIMETH 30 ML UDC PO PRN (18:00)
[2018-06-23] MEDS ORDERED: MAGNESIUM HYDROXIDE 30 ML UDC PO PRN (18:00)
[2018-06-23] MEDS ORDERED: DEXTROSE 50%-WATER 50 ML DISP.SYRIN IV PRN (18:00)
[2018-06-23] MEDS ORDERED: IPRATROPIUM NEB FS 0.5 MG/2.5 ML AMPUL.NEB NEB PRN (18:00)
[2018-06-23] MEDS ORDERED: GLIP2.5T3 PO (18:33)
[2018-06-23] MEDS: BLOOD SUGAR DIAGNOSTIC 1 EACH STRIP IN SCH (22:35)
[2018-06-23] MEDS: ZOLPIDEM TARTRATE 5 MG TABLET PO PRN (22:35)
[2018-06-23] MEDS: INSULIN REGULAR, HUMAN 100 UNIT/ML 3 ML VIAL SQ PRN (22:42)
[2018-06-23 23:17] VITALS: BP 142/81
[2018-06-24] VITALS (7 sets, daily range): BP systolic 114–137; BP diastolic 60–74
[2018-06-24 06:47] LABS: EOSINOPHILS % (AUTO) 0.2 % (0.0-6.0); HEMATOCRIT 50 % (39-51); HEMOGLOBIN 16.1 g/dL (13.5-17.5); LYMPHOCYTES # (AUTO) 1.5 /CMM (0.8-4.8); LYMPHOCYTES % (AUTO) 9.7 % (20.0-44.0); MEAN CORPUSCULAR HEMOGLOBIN 31 PG (26.0-33.0); MEAN CORPUSCULAR HGB CONC 32 g/dl (31.0-36.0); MEAN CORPUSCULAR VOLUME 95 fL (80-96); MONOCYTES # (AUTO) 1.1 /CMM (0.1-1.30); MONOCYTES % (AUTO) 7.5 % (2.0-12.0); NEUTROPHILS # (AUTO) 12.6 /CMM (1.8-8.9); NEUTROPHILS % (AUTO) 82.6 % (43.0-81.0); PLATELET COUNT (AUTO) 215 /CMM (150-450); RED BLOOD CELL COUNT(AUTO) 5.24 MIL/uL (4.5-6.0); WHITE BLOOD COUNT (AUTO) 15.3 K/uL (4.3-11.0)
[2018-06-24 07:03] LABS: CHOLESTEROL 116 mg/dL (<200); HDL CHOLESTEROL 41 mg/dL (40-60); LDL 73 mg/dL (0-99); TRIGLYCERIDES 61 mg/dL (30-150)
[2018-06-24 07:07] LABS: CALCIUM, SERUM 8.4 mg/dL (8.5-10.1); CARBON DIOXIDE 27 mmol/L (21-32); CHLORIDE 106 mmol/L (98-107); CREATININE 1.2 mg/dL (0.6-1.3); GLUCOSE 98 mg/dL (74-106); SODIUM SERUM 144 mmol/L (136-145); UREA NITROGEN, BLOOD 23 mg/dL (7-18)
[2018-06-24] MEDS: BLOOD SUGAR DIAGNOSTIC 1 EACH STRIP IN SCH ×4 (07:34→21:25)
[2018-06-24] MEDS: POTASSIUM CHLORIDE 20 MEQ TAB.PRT.SR PO SCH ×2 (08:17→17:50)
[2018-06-24] MEDS: ATORVASTATIN 40 MG TABLET PO SCH (08:18)
[2018-06-24] MEDS: FUROSEMIDE 40 MG TABLET PO SCH (08:18)
[2018-06-24] MEDS: MULTIVITAMINS,THERAGRAN 1 UDTAB TABLET PO SCH (08:18)
[2018-06-24] MEDS: NICOTINE PATCH (14MG) 14 MG PATCH.TD24 TD SCH ×2 (08:18→08:24)
[2018-06-24] MEDS: AMLODIPINE BESYLATE 2.5 MG TABLET PO SCH (08:18)
[2018-06-24] MEDS: TAMSULOSIN 0.4 MG CAP.SR.24H PO SCH (08:18)
[2018-06-24] MEDS: BENAZEPRIL HCL 20 MG TABLET PO SCH (08:18)
[2018-06-24] MEDS: glipiZIDE XL 2.5 MG TAB.OSM.24 PO SCH (08:19)
[2018-06-24] MEDS ORDERED: Medication Not On Formulary EA (Tadalafil (Cialis) 5 MG) PO SCH (09:00)
[2018-06-24] MEDS ORDERED: POTASSIUM CHLORIDE 20 MEQ TAB.PRT.SR PO ONE (11:30)
[2018-06-24] MEDS: INSULIN REGULAR, HUMAN 100 UNIT/ML 3 ML VIAL SQ PRN ×3 (12:26→21:29)
[2018-06-24 12:57] LABS: INR 2.3 (0.87-1.13)
[2018-06-24] MEDS: CEFTRIAXONE 1 G in IV D5W 50 ML IV SCH (15:25)
[2018-06-24] MEDS ORDERED: WARFARIN SODIUM 5 MG TABLET PO SCH (17:00)
[2018-06-24] MEDS: AZITHROMYCIN 500 MG in IV D5W 250 ML IV SCH (17:52)
[2018-06-24] MEDS: ZOLPIDEM TARTRATE 5 MG TABLET PO PRN (21:27)
[2018-06-25] VITALS: BP 141/85
[2018-06-25 04:00] VITALS: BP 114/60
[2018-06-25 08:00] VITALS: BP 156/69
[2018-06-25] MEDS: glipiZIDE XL 2.5 MG TAB.OSM.24 PO SCH (08:08)
[2018-06-25] MEDS: BLOOD SUGAR DIAGNOSTIC 1 EACH STRIP IN SCH ×4 (08:08→21:05)
[2018-06-25] MEDS: POTASSIUM CHLORIDE 20 MEQ TAB.PRT.SR PO SCH ×2 (08:09→17:14)
[2018-06-25] MEDS: ATORVASTATIN 40 MG TABLET PO SCH (08:09)
[2018-06-25] MEDS: AMLODIPINE BESYLATE 2.5 MG TABLET PO SCH (08:09)
[2018-06-25] MEDS: MULTIVITAMINS,THERAGRAN 1 UDTAB TABLET PO SCH (08:09)
[2018-06-25] MEDS: TAMSULOSIN 0.4 MG CAP.SR.24H PO SCH (08:09)
[2018-06-25] MEDS: FUROSEMIDE 40 MG TABLET PO SCH (08:09)
[2018-06-25] MEDS: NICOTINE PATCH (14MG) 14 MG PATCH.TD24 TD SCH (08:09)
[2018-06-25] MEDS: BENAZEPRIL HCL 20 MG TABLET PO SCH (08:10)
[2018-06-25] MEDS: INSULIN REGULAR, HUMAN 100 UNIT/ML 3 ML VIAL SQ PRN ×3 (08:14→21:06)
[2018-06-25 11:24] LABS: INR 1.74 (0.87-1.13)
[2018-06-25 12:00] VITALS: BP 119/60
[2018-06-25] MEDS: CEFTRIAXONE 1 G in IV D5W 50 ML IV SCH (15:29)
[2018-06-25 16:00] VITALS: BP 148/61
[2018-06-25] MEDS ORDERED: WARFARIN SODIUM 1 MG TABLET PO ONE (17:00)
[2018-06-25] MEDS ORDERED: WARFARIN SODIUM 5 MG TABLET PO SCH (17:11)
[2018-06-25] MEDS: AZITHROMYCIN 500 MG in IV D5W 250 ML IV SCH (17:13)
[2018-06-25 20:00] VITALS: BP 152/80
[2018-06-25] MEDS: ZOLPIDEM TARTRATE 5 MG TABLET PO PRN (22:02)
[2018-06-26] VITALS: BP 139/79
[2018-06-26 04:00] VITALS: BP 134/75
[2018-06-26 06:50] LABS: CALCIUM, SERUM 8.7 mg/dL (8.5-10.1); CARBON DIOXIDE 28 mmol/L (21-32); CHLORIDE 106 mmol/L (98-107); GLUCOSE 125 mg/dL (74-106); POTASSIUM 3.4 mmol/L (3.5-5.1); SODIUM SERUM 141 mmol/L (136-145); UREA NITROGEN, BLOOD 21 mg/dL (7-18)
[2018-06-26 06:55] LABS: BASOPHILS % (AUTO) 0.2 % (0.0-2.0); EOSINOPHILS % (AUTO) 1.8 % (0.0-6.0); HEMATOCRIT 50 % (39-51); HEMOGLOBIN 16.4 g/dL (13.5-17.5); LYMPHOCYTES # (AUTO) 1.5 /CMM (0.8-4.8); LYMPHOCYTES % (AUTO) 14.3 % (20.0-44.0); MEAN CORPUSCULAR HEMOGLOBIN 31 PG (26.0-33.0); MEAN CORPUSCULAR HGB CONC 33 g/dl (31.0-36.0); MEAN CORPUSCULAR VOLUME 95 fL (80-96); MONOCYTES % (AUTO) 9.1 % (2.0-12.0); NEUTROPHILS % (AUTO) 74.6 % (43.0-81.0); PLATELET COUNT (AUTO) 216 /CMM (150-450); RDW COEFFICIENT OF VARIATION 15.1 (11.5-15.0); RED BLOOD CELL COUNT(AUTO) 5.22 MIL/uL (4.5-6.0); WHITE BLOOD COUNT (AUTO) 10.7 K/uL (4.3-11.0)
[2018-06-26 07:43] LABS: INR 1.73 (0.87-1.13)
[2018-06-26 08:00] VITALS: BP 152/80
[2018-06-26] MEDS: BLOOD SUGAR DIAGNOSTIC 1 EACH STRIP IN SCH ×2 (08:26→12:23)
[2018-06-26] MEDS: ATORVASTATIN 40 MG TABLET PO SCH (08:27)
[2018-06-26] MEDS: BENAZEPRIL HCL 20 MG TABLET PO SCH (08:27)
[2018-06-26] MEDS: POTASSIUM CHLORIDE 20 MEQ TAB.PRT.SR PO SCH (08:27)
[2018-06-26] MEDS: FUROSEMIDE 40 MG TABLET PO SCH (08:27)
[2018-06-26] MEDS: TAMSULOSIN 0.4 MG CAP.SR.24H PO SCH (08:27)
[2018-06-26] MEDS: AMLODIPINE BESYLATE 2.5 MG TABLET PO SCH (08:29)
[2018-06-26] MEDS: INSULIN REGULAR, HUMAN 100 UNIT/ML 3 ML VIAL SQ PRN ×2 (08:31→12:28)
[2018-06-26] MEDS: MULTIVITAMINS,THERAGRAN 1 UDTAB TABLET PO SCH (08:38)
[2018-06-26] MEDS: NICOTINE PATCH (14MG) 14 MG PATCH.TD24 TD SCH (08:38)
[2018-06-26] MEDS ORDERED: ENOXAPARIN SODIUM 80 MG/0.8 ML DISP.SYRIN SQ SCH (09:00)
[2018-06-26 12:00] VITALS: BP 146/83
[2018-06-26] MEDS ORDERED: AZITHROMYCIN 250 MG TABLET PO SCH (17:00)
[2018-06-27] MEDS ORDERED: WARFARIN SODIUM 2 MG TABLET PO SCH (17:00)
== END 2018-06-26 12:35 | disposition home or self-care (01) | DRG 291 ==
LOC: ER 14:37 → TELE-TD 17:05 → TELE1 06-24 16:39
PROVIDERS: ADMIT Nurse Practitioner Acute Care; ATTEND Nurse Practitioner Acute Care
DX: I11.0 Hypertensive heart disease with heart failure (principal); J96.01 Acute respiratory failure with hypoxia; J15.9 Unspecified bacterial pneumonia; E87.2 Acidosis; I50.33 Acute on chronic diastolic (congestive) heart failure; Z95.2 Presence of prosthetic heart valve; Z91.14 Patient's other noncompliance with medication regimen; Z79.84 Long term (current) use of oral hypoglycemic drugs; Z79.01 Long term (current) use of anticoagulants; Z91.19 Patient's noncompliance with other medical treatment and regimen; Z88.1 Allergy status to other antibiotic agents; E11.65 Type 2 diabetes mellitus with hyperglycemia; E87.6 Hypokalemia; E78.5 Hyperlipidemia, unspecified; Z72.0 Tobacco use; N40.0 Benign prostatic hyperplasia without lower urinary tract symptoms; K21.9 Gastro-esophageal reflux disease without esophagitis; I25.10 Atherosclerotic heart disease of native coronary artery without angina pectoris; I05.9 Rheumatic mitral valve disease, unspecified
CPT/HCPCS: 36415; 71045-TC; 80048-TC; 80061-TC; 80076-TC; 82962-TC; 83605-TC; 83735-TC; 83880; 84100-TC; 84484-TC; 85025-TC; 85610-TC; 85730-TC; 87040-TC; 87070-TC; 87081-TC; 87400; 93307-TC; A4606; J0456; J0696; J1650; J1815; J1940; J7050; J7060; Z7610